=== PATIENT | female | born 1965 | race Caucasian/White ===

== ENCOUNTER 2016-12-01 15:52 | Observation (INO) ==
--- NOTE | 2016-12-01 17:40 | Emergency Department Note ---
Disposition Clinical Impression: Cellulitis Qualifiers: Site of cellulitis: extremity Site of cellulitis of extremity: lower extremity Laterality: right Qualified Code(s): L03.115 - Cellulitis of right lower limb Disposition: Admitted As Inpatient Condition: Good Extremity Problem HPI - General Chief complaint: ED Extremity Problem,Nontraumatic Stated complaint: "i think i have cellulitis" Time Seen by Provider: 12/01/16 16:52 Source: patient Mode of arrival: private vehicle Limitations: physical limitation Nursing Notes Reviewed: Yes Vital Signs Reviewed: Yes - History of Present Illness HPI Narrative: 51-year-old female history of morbid obesity, diabetes, MRSA infections in the past who presents to the ER with a chief complaint of possible cellulitis. Patient states that it was brought to her attention that she had redness to her right leg last night. She states she rebeca a [place] around it. She was told to do that the last time she had cellulitis. She reports chills at home but no fevers. She has also felt nauseated but no vomiting. She came in today because the redness had worsened from where she had drawn a [place]. She reports a history of cellulitis in the past requiring hospitalization and IV antibiotics. She also reports a history of solitary kidney and a prior history of renal failure in the past. No other complaints. She was recently admitted with a UTI on Cipro and has completed that course of antibiotics. Pt Subjective Complaint: other (Cellulitis) Onset (ago): day(s) Consistency: constant Injury Location: right, lower extremity Pain Scale: 7 Quality: aching Radiation: none Improves with: nothing Worsens with: nothing Associated symptoms: Reports: rash, change in appearance, redness. Denies: chest pain, abdominal pain, fever - Related Data Home Medications Medication Instructions Recorded Confirmed Acetaminophen/Butalbital/Caffe 1 tab PO Q4H PRN 02/20/15 11/19/16 [Fioricet] Albuterol Sulfate [Albuterol 2 puff IH BID PRN 02/20/15 11/19/16 Inhaler] Amitriptyline [Elavil] 25 mg PO HS 02/20/15 11/19/16 Clopidogrel [Plavix] 75 mg PO DAILY 02/20/15 11/19/16 Cyanocobalamin (B-12) [Vitamin B12] 1,000 mcg IM QMONTH 02/20/15 11/19/16 Duloxetine HCl [Cymbalta] 60 mg PO DAILY 02/20/15 11/19/16 Gabapentin [Neurontin] 800 mg PO TID 02/20/15 11/19/16 Levothyroxine [Synthroid] 50 mcg PO DAILY 02/20/15 11/19/16 Lisinopril [Zestril] 40 mg PO DAILY 02/20/15 11/19/16 Oxybutynin [Ditropan] 5 mg PO BID 02/20/15 11/19/16 Oxygen 2 l .ROUTE DAILY 02/20/15 11/19/16 Simvastatin [Zocor] 40 mg PO HS 02/20/15 11/19/16 Isosorbide MONOnitrate (24 HR) 30 mg PO DAILY 02/26/16 11/19/16 [Imdur] Norethindrone Acetate 5 mg PO DAILY 02/26/16 11/19/16 Docusate [Colace] 100 mg PO BID 08/08/16 11/19/16 Lidocaine Patch [Lidoderm 5% patch] 1 each TP DAILY 08/08/16 11/19/16 Metoprolol [Lopressor] 25 mg PO BID 08/08/16 11/19/16 Zonisamide [Zonegran] 2 cap PO DAILY 08/08/16 11/19/16 Acetaminophen [Non-Aspirin Extra 500 mg PO QID PRN 09/22/16 11/19/16 Strength] Ranitidine HCl [Zantac] 150 mg PO BID 09/22/16 11/19/16 Tramadol HCl [Ultram] 50 mg PO QID PRN 09/22/16 11/19/16 diazePAM [Valium] 1 tab PO BID PRN 09/22/16 11/19/16 Metformin HCl [Fortamet] 500 mg PO BID 11/19/16 11/19/16 Previous Rx's Medication Instructions Recorded Cholecalciferol (D-3) [Vitamin D] 2,000 unit PO DAILY #60 tablet 12/29/15 HYDROcodone/Acet 5/325 mg [[place] 1 tab PO Q6H PRN #10 tab 09/25/16 5-325 mg] HYDROcodone/Acet 5/325 mg [[place] 1 tab PO Q6H PRN #10 tab 11/19/16 5-325 mg] Nitrofurantoin (BID) [Macrobid] 100 mg PO BID #10 capsule 11/19/16 Ondansetron ODT [Zofran ODT] 4 mg SL Q6HR #10 tab.rapdis 11/19/16 Allergies Allergy/AdvReac Type Severity Reaction Status Date / Time ciprofloxacin Allergy Gastrointestinal Verified 09/25/16 15:07 Upset Penicillins [PCN] AdvReac Intermediate Gastrointestinal Verified 09/25/16 15:07 Upset aspirin [ASA] AdvReac Mild Gastrointestinal Verified 09/25/16 15:07 Upset rice AdvReac Gastrointestinal Verified 09/25/16 15:07 Upset All systems ED: reviewed and negative except as stated. Constitutional: Reports: chills. Denies: fever Cardiovascular: Denies: chest pain Respiratory: Denies: dyspnea Gastrointestinal: Reports: nausea. Denies: abdominal pain, vomiting, diarrhea Integumentary: Reports: lesions Past Medical History - Past Medical History Attestation: Yes The following information was validated with the patient. Source: patient Medical history: Reports: arthritis, asthma, cancer, CVA, diabetes, GERD, hyperlipidemia, hypertension, migraine, myocardial infarction, renal disease, thyroid disease, TIA, other Surgical history: Reports: breast surgery, , cataract, other Psychiatric history: Reports: anxiety, depression WELL TESTER history: Reports: no WELL TESTER history, other - Social History Smoking Status: Former smoker Smokeless Tobacco Status: No Alcohol use: Reports: none Drug use: Reports: none Physical Exam - General Limitations: physical limitation General appearance: alert, in no apparent distress - Head Head exam: atraumatic, normocephalic, normal inspection - Eye Eye exam: Present: normal appearance, EOMI - ENT ENT exam: normal exam - Neck Neck exam: Present: normal inspection - Chest Chest inspection: Present: normal inspection, symmetric chest wall rise - Respiratory Respiratory exam: Present: normal lung sounds bilaterally - Cardiovascular Cardiovascular exam: Present: regular rate, normal rhythm, normal heart sounds - Abdominal Exam Abdominal exam: Present: soft, Non-Tender, other (Multiple poorly healing lesions over the abdomen). Absent: tenderness - Extremities Exam Extremities exam: Present: normal inspection, full ROM - Expanded Upper Extremity Exam Shoulder exam: Present: normal inspection, full ROM Arm exam: Present: normal inspection, full ROM Elbow exam: Present: normal inspection, full ROM Forearm/Wrist exam: Present: normal inspection, full ROM Hand exam: Present: normal inspection, full ROM - Expanded Lower Extremity Exam Hip/Pelvis exam: Present: normal inspection, full ROM Upper leg exam: Present: normal inspection, full ROM Knee exam: Present: normal inspection, full ROM Lower leg exam: Present: normal inspection, full ROM, erythema (There is erythema over the anterior and medial aspects of the lower extremity up into the popliteal fossa) Ankle exam: Present: normal inspection, full ROM Foot/toe exam: Present: normal inspection, full ROM, other (There are ulcerations over the right second toe and the left fifth toe.) - Neurological Exam Neurological exam: Present: alert - Psychiatric Psychiatric exam: Present: normal affect, normal mood - Skin Skin exam: Present: dry, intact, erythema (Erythema to the distal anterior right lower extremity and medial portion tracking up into the popliteal fossa.) Course Course Narrative: Patient seen and examined. Vital signs reviewed. We will get basic labs. She also has a history of MRSA and will require hospital admission for IV antibiotics as the site has changed significantly since yesterday. Vital Signs Temperature 97.8 F 12/01/16 15:53 Pulse Rate 81 12/01/16 15:53 Respiratory Rate 24 12/01/16 15:53 Blood Pressure 106/61 12/01/16 15:53 O2 Sat by Pulse Oximetry 96 12/01/16 15:53 Temperature 97.8 F 12/01/16 15:53 Pulse Rate 81 12/01/16 15:53 Respiratory Rate 18 12/01/16 19:45 Blood Pressure 116/77 12/01/16 19:45 O2 Sat by Pulse Oximetry 96 12/01/16 15:53 Oxygen Delivery Oxygen Delivery Room Air Extremity Problem, Nontraumati - MDM Narrative Medical decision making narrative: 51-year-old female presents to the ER due to right lower from a cellulitis. She has a history of MRSA in the past requiring hospitalization and IV antibiotics. The area has roughly doubled since she marked it yesterday. No fevers at home but chills. Labwork here unremarkable. She does have a history of solitary kidney and renal failure in the past so we talked with pharmacy and gave her doxycycline. Patient admitted to the hospital service. - Lab Data Lab results reviewed: Yes I reviewed the patient's lab results. Result diagrams: 12/01/16 18:13 12/01/16 18:13 Lab Results 12/01/16 12/01/16 Range/Units 18:13 18:13 WBC 7.5 (4.3-11.1) K/mcL RBC 3.97 (3.82-4.97) M/mcL Hgb 11.3 L (11.5-15.4) g/dL Hct 35.6 (35.3-44.9) % MCV 89.7 (83.0-100.0) fL MCH 28.5 (28.0-33.3) pg MCHC 31.7 (31.6-35.5) g/dL RDW 14.4 (11.5-14.5) % Plt Count 233 (140-400) K/mcL MPV 8.7 L (9.4-12.4) fL Immature Gran % 0.1 (0-4) % Seg Neutrophils % 68.4 % Lymphocytes % 22.6 % Monocytes % 7.0 % Eosinophils % 1.5 % Basophils % 0.4 % Neutrophils # 5.1 (1.6-8.9) K/mcL Lymphocytes # 1.7 (0.6-4.6) K/mcL Monocytes # 0.5 (0.0-1.3) K/mcL Eosinophils # 0.1 (0.0-0.6) K/mcL Basophils # 0.0 (0.0-0.2) K/mcL Sodium 141 (136-145) mEq/L Potassium 4.6 H (3.5-4.5) mEq/L Chloride 110 H (98-109) mEq/L Carbon Dioxide 22 (19-29) mEq/L BUN 17 (7-20) mg/dL Creatinine 0.98 (0.57-1.11) mg/dL Est GFR ( Amer) > 60 (> 60) Est GFR (Non-Af Amer) 60 (> 60) BUN/Creatinine Ratio 17 (6-26) Glucose 112 H (70-99) mg/dL Calculated Osmolality 294 (280-300) Calcium 8.9 (8.6-10.8) mg/dL Attestation Statement - Attestation Attestation: I, Saurav Tamayo, examined this patient and my medical decision-making was reviewed with the PROGRAM ENGINEER/PA/Advanced Practice Nurse/Resident Physician. I agree with the documented findings, disposition and treatment plan as described except to the extent set forth below. 51-year-old female presents with concerns of cellulitis. Patient states she had an area of erythema to the right medial calf which she circled with a pen. Today she woke and she had significant pain and increased erythema which extended outside of the line she created. Patient has a history of MRSA. She states she has a history of needing to be admitted to the hospital for treatment of skin infection in the past. Patient has an extensive past medical history with multiple comorbidities. Patient only has one kidney and I am refraining from using vancomycin this patient due to his nephrotoxicity. Patient takes Cymbalta and therefore I cannot use Linezolid. I spoke with the pharmacist who recommended doxycycline IV. Vital signs are stable. She feels comfortable to be admitted to the hospital for further care and evaluation.
[2016-12-01] MEDS ORDERED: Doxycycline 100 MG in 0.9 % Sodium Chloride Mini Bag 100 ML IVPB ONE (18:07)
[2016-12-01 18:29] LABS: Basophils % 0.4 %; Eosinophils # 0.1 K/mcL (0.0-0.6); Eosinophils % 1.5 %; Hematocrit 35.6 % (35.3-44.9); Hemoglobin 11.3 g/dL (11.5-15.4); Immature Granulocytes % 0.1 % (0-4); Lymphocytes # 1.7 K/mcL (0.6-4.6); Lymphocytes % 22.6 %; Mean Corpuscular HGB Conc 31.7 g/dL (31.6-35.5); Mean Corpuscular Hemoglobin 28.5 pg (28.0-33.3); Mean Corpuscular Volume 89.7 fL (83.0-100.0); Mean Platelet Volume 8.7 fL (9.4-12.4); Monocytes # 0.5 K/mcL (0.0-1.3); Neutrophils # 5.1 K/mcL (1.6-8.9); Platelet Count 233 K/mcL (140-400); Red Blood Count 3.97 M/mcL (3.82-4.97); Red Cell Distribution Width 14.4 % (11.5-14.5); Segmented Neutrophils % 68.4 %
[2016-12-01 18:42] LABS: BUN/Creatinine Ratio 17 (6-26); Blood Urea Nitrogen 17 mg/dL (7-20); Calcium 8.9 mg/dL (8.6-10.8); Carbon Dioxide 22 mEq/L (19-29); Chloride 110 mEq/L (98-109); Glucose 112 mg/dL (70-99); Osmolality,Calculated 294 (280-300); Potassium 4.6 mEq/L (3.5-4.5); Sodium 141 mEq/L (136-145); eGFR For African Americans > 60 (> 60); eGFR For Non-African Americans 60 (> 60)
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
[2016-12-01 20:43] LABS: Basophils % 0.2 %; Eosinophils # 0.1 K/mcL (0.0-0.6); Eosinophils % 1.2 %; Hematocrit 35.5 % (35.3-44.9); Hemoglobin 11.1 g/dL (11.5-15.4); Immature Granulocytes % 0.2 % (0-4); Lymphocytes # 1.9 K/mcL (0.6-4.6); Lymphocytes % 23.3 %; Mean Corpuscular HGB Conc 31.3 g/dL (31.6-35.5); Mean Corpuscular Hemoglobin 28.2 pg (28.0-33.3); Mean Corpuscular Volume 90.3 fL (83.0-100.0); Mean Platelet Volume 8.5 fL (9.4-12.4); Monocytes # 0.6 K/mcL (0.0-1.3); Monocytes % 6.9 %; Neutrophils # 5.5 K/mcL (1.6-8.9); Platelet Count 222 K/mcL (140-400); Red Blood Count 3.93 M/mcL (3.82-4.97); Red Cell Distribution Width 14.3 % (11.5-14.5); Segmented Neutrophils % 68.2 %
[2016-12-01 20:56] LABS: BUN/Creatinine Ratio 17 (6-26); Blood Urea Nitrogen 16 mg/dL (7-20); Calcium 8.8 mg/dL (8.6-10.8); Carbon Dioxide 21 mEq/L (19-29); Chloride 110 mEq/L (98-109); Glucose 109 mg/dL (70-99); Magnesium 1.4 mg/dL (1.6-2.6); Osmolality,Calculated 290 (280-300); Potassium 4.5 mEq/L (3.5-4.5); Sodium 139 mEq/L (136-145); eGFR For African Americans > 60 (> 60); eGFR For Non-African Americans > 60 (> 60)
[2016-12-01] MEDS: *HR* Heparin 5,000 UNIT/ML VIAL SQ SCH (21:56)
[2016-12-01] MEDS: 0.9 % Sodium Chloride 1,000 ML IVC SCH (21:56)
[2016-12-01] MEDS: Insulin LISPRO 300 UNITS/3 ML VIAL SQ SCH (21:57)
[2016-12-02 00:41] LABS: Hemoglobin A1C 6.2 %
[2016-12-02] MEDS: *HR* HYDROcodone/Acet 5/325 mg TABLET PO PRN ×3 (00:52→20:24)
[2016-12-02] MEDS: Clindamycin 600 MG/50 ML 600 MG/50 ML IV.SOLN IVPB SCH ×2 (00:53→09:41)
[2016-12-02] MEDS: *HR* Heparin 5,000 UNIT/ML VIAL SQ SCH ×3 (05:38→22:24)
[2016-12-02] MEDS ORDERED: Magnesium Sulfate 2 GM in D5% in Water 100 ML IVPB ONE (07:33)
[2016-12-02] MEDS: Insulin LISPRO 300 UNITS/3 ML VIAL SQ SCH ×4 (08:01→21:52)
[2016-12-02] MEDS ORDERED: Famotidine 20 MG/2 ML VIAL IVP SCH (09:00)
[2016-12-02] MEDS ORDERED: NON-FORMULARY MEDICATION 1 EACH EACH (Oxygen [Oxygen] 2 L) SCH (09:00)
[2016-12-02] MEDS ORDERED: Isosorbide MONOnitrate (24 HR) 30 MG TAB.ER.24H PO SCH (09:00)
[2016-12-02] MEDS: Lisinopril 20 MG TABLET PO SCH (09:44)
[2016-12-02] MEDS: Cholecalciferol (D-3) 1,000 UNIT TABLET PO SCH (09:44)
[2016-12-02] MEDS: 0.9 % Sodium Chloride 1,000 ML IVC SCH ×2 (09:56→23:51)
[2016-12-02] MEDS ORDERED: Vancomycin 1,250 MG in D5% in Water 250 ML IVPB SCH (11:00)
[2016-12-02] MEDS ORDERED: Vancomycin 1,500 MG in D5% in Water 250 ML IVPB ONE (11:21)
[2016-12-02] MEDS ORDERED: D5% in Water 1,000 ML IVC PRN (11:54)
[2016-12-02] MEDS ORDERED: Dextrose Gel 15 GM PO PRN ×2 (11:54)
[2016-12-02] MEDS ORDERED: *HR* Dextrose 50 % in Water (Syg) 50 ML SYRINGE IVP PRN (11:54)
[2016-12-02 12:42] LABS: BUN/Creatinine Ratio 14 (6-26); Blood Urea Nitrogen 13 mg/dL (7-20); eGFR For African Americans > 60 (> 60); eGFR For Non-African Americans > 60 (> 60)
[2016-12-02] MEDS: Gabapentin 400 MG CAPSULE PO SCH ×2 (14:33→20:18)
[2016-12-02] MEDS: Vancomycin 1,500 MG in D5% in Water 250 ML IVPB SCH (14:43)
--- NOTE | 2016-12-02 16:07 | Internal Med Progress Note ---
Date of Encounter: 12/02/16 Time of Encounter: 08:55 - Assessment and plan (1) Cellulitis Current Visit: Yes Status: Acute Assessment and plan: Acute cellulitis of right lower extremity - possibly due to minor injury - ulcers of right second toe plantar aspect and ulcer of left fifth toe plantar aspect Continue IV fluids, empiric IV Zosyn, IV Vancomycin, [place] as needed for pain Blood cultures and urine cultures - pending Ultrasound Dopplers bilateral - pending Podiatry consult - pending Cardiac telemetry, labs in a.m., continue home meds, wound care, dressing change Qualifiers: Site of cellulitis: extremity Site of cellulitis of extremity: lower extremity Laterality: right Qualified Code(s): L03.115 - Cellulitis of right lower limb (2) DM type 2 (diabetes mellitus, type 2) Current Visit: No Status: Chronic Assessment and plan: Diabetes mellitus type 2, [id number], hyperglycemia Continue insulin sliding scale, glucose checks Qualifiers: Diabetes mellitus complication status: with unspecified complications Diabetes mellitus termite inspector insulin use: without termite inspector use Qualified Code( s): E11.8 - Type 2 diabetes mellitus with unspecified complications (3) PETROS (obstructive sleep apnea) Current Visit: No Status: Chronic Assessment and plan: Obstructive sleep apnea and obesity hypoventilation - continue CPAP (4) COPD (chronic obstructive pulmonary disease) Current Visit: No Status: Chronic Assessment and plan: Stable, not in exacerbation Continue DuoNeb breathing treatment Qualifiers: COPD type: unspecified COPD Qualified Code(s): J44.9 - Chronic obstructive pulmonary disease, unspecified (5) Coronary artery disease Current Visit: No Status: Chronic Assessment and plan: Stable - No anginal symptoms Continue Plavix, statin Qualifiers: Coronary Disease-Associated Artery/Lesion type: [place] artery [place] vs. transplanted heart: [place] heart Associated angina: with unspecified angina Qualified Code(s): I25.119 - Atherosclerotic heart disease of [place] coronary artery with unspecified angina pectoris (6) Morbid obesity with BMI of 70 and over, adult Current Visit: No Status: Chronic Assessment and plan: BMI 70.0, needs PT (7) Single kidney Current Visit: Yes Status: Chronic Assessment and plan: History of congenital atrophic left kidney. Creatinine and GFR at baseline. Avoid nephrotoxins (8) DVT prophylaxis Current Visit: Yes Status: Acute Assessment and plan: Continue heparin subcutaneous - Time Spent With Patient 25 - 35 minutes - Subjective Interval history: Examined this morning. Patient is awake and alert. Not in any distress. Denies chest pain or shortness of breath. Denies abdominal pain or vomiting or diarrhea. No fever. Patient is morbidly obese. Hemodynamically stable. Admitted for left lower leg cellulitis. Podiatry consult pending. Ultrasound Doppler of lower extremities pending. No other acute events or complaints. - Constitutional Vitals: Temp Pulse Resp BP Pulse Ox 97.9 F 76 18 145/90 94 12/02/16 15:30 12/02/16 15:30 12/02/16 15:30 12/02/16 15:30 12/02/16 15:30 General appearance: Present: A&O X 3, morbidly obese, pleasant, no acute distress, answers questions appropriately - Head Head exam: Present: atraumatic - Eye Eye exam: Present: EOMI - ENT ENT exam: Present: mucous membranes moist - Neck Neck exam general surgery: Present: supple - Respiratory Respiratory exam: Present: CTAB. Absent: rales, rhonchi, wheezes, tachypnea - Cardiovascular Cardiovascular exam: Present: RRR, +S1, +S2 - GI/Abdominal GI/Abdominal exam: Present: distended (Obese), soft. Absent: firm, guarding, tenderness - Extremities Exam Extremities exam: Present: calf tenderness (Over right side), pedal edema ( Bilateral leg edema 2+ on the left side and 3+ on right side), radial pulses palpable and symetrical. Absent: cyanotic Additional comments: Erythema and severe swelling over right lower leg and calf, no calf tenderness, ulcer over the right second toe plantar aspect and ulcer over left fifth toe plantar aspect - Neurological Exam Neurological exam: Present: alert, oriented X3, no focal deficits. Absent: facial droop, speech deficit Internal Medicine: Result - Labs CBC & Chem 7: 12/01/16 20:37 12/02/16 12:06 Labs: Short CBC 12/01/16 Range/Units 20:37 WBC 8.1 (4.3-11.1) K/mcL Hgb 11.1 L (11.5-15.4) g/dL Hct 35.5 (35.3-44.9) % Plt Count 222 (140-400) K/mcL Neutrophils # 5.5 (1.6-8.9) K/mcL BMP 12/01/16 12/02/16 20:37 12:06 Sodium 139 Potassium 4.5 Chloride 110 H Carbon Dioxide 21 BUN 16 13 Creatinine 0.92 0.95 Glucose 109 H Calcium 8.8 Consult Discharge Plan - Plan Referrals: Jamie Garibay MD [Primary Care Provider] -
[2016-12-02] MEDS: Piperacillin/Tazobactam 3.375 GM in D5% in Water (Mini-Bag+) 100 ML IVPB SCH ×2 (16:18→23:51)
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
[2016-12-02] MEDS ORDERED: Ondansetron 4 MG/2 ML VIAL IVP PRN (22:19)
[2016-12-02] MEDS ORDERED: *HR* Morphine 2 MG/ML SYRINGE IVP PRN (22:20)
[2016-12-03 04:45] LABS: Basophils % 0.7 %; Eosinophils # 0.1 K/mcL (0.0-0.6); Eosinophils % 2.3 %; Hemoglobin 10.5 g/dL (11.5-15.4); Immature Granulocytes % 0.7 % (0-4); Lymphocytes # 1.3 K/mcL (0.6-4.6); Lymphocytes % 29.1 %; Mean Corpuscular HGB Conc 30.9 g/dL (31.6-35.5); Mean Corpuscular Hemoglobin 28.1 pg (28.0-33.3); Mean Corpuscular Volume 90.9 fL (83.0-100.0); Mean Platelet Volume 9.1 fL (9.4-12.4); Monocytes # 0.3 K/mcL (0.0-1.3); Monocytes % 6.9 %; Neutrophils # 2.6 K/mcL (1.6-8.9); Platelet Count 216 K/mcL (140-400); Red Blood Count 3.74 M/mcL (3.82-4.97); Red Cell Distribution Width 14.7 % (11.5-14.5); Segmented Neutrophils % 60.3 %
[2016-12-03 05:03] LABS: BUN/Creatinine Ratio 13 (6-26); Blood Urea Nitrogen 13 mg/dL (7-20); Calcium 9.2 mg/dL (8.6-10.8); Carbon Dioxide 22 mEq/L (19-29); Chloride 110 mEq/L (98-109); Glucose 119 mg/dL (70-99); Osmolality,Calculated 291 (280-300); Potassium 4.4 mEq/L (3.5-4.5); Sodium 140 mEq/L (136-145); eGFR For African Americans > 60 (> 60); eGFR For Non-African Americans 57 (> 60)
[2016-12-03] MEDS: *HR* Heparin 5,000 UNIT/ML VIAL SQ SCH ×3 (06:05→21:40)
[2016-12-03] MEDS: Vancomycin 1,500 MG in D5% in Water 250 ML IVPB SCH ×4 (06:05→13:56)
[2016-12-03] MEDS: Insulin LISPRO 300 UNITS/3 ML VIAL SQ SCH ×4 (08:55→21:40)
[2016-12-03] MEDS: Piperacillin/Tazobactam 3.375 GM in D5% in Water (Mini-Bag+) 100 ML IVPB SCH ×2 (10:40→15:46)
[2016-12-03] MEDS: Cholecalciferol (D-3) 1,000 UNIT TABLET PO SCH (10:43)
[2016-12-03] MEDS: Famotidine 20 MG TABLET PO SCH (10:43)
[2016-12-03] MEDS: Gabapentin 400 MG CAPSULE PO SCH ×3 (10:44→21:40)
[2016-12-03] MEDS: Isosorbide MONOnitrate (24 HR) 60 MG TAB.ER.24H PO SCH (10:44)
[2016-12-03] MEDS: Lisinopril 20 MG TABLET PO SCH (10:44)
[2016-12-03] MEDS ORDERED: *HR* HYDROcodone/Acet 5/325 mg TABLET PO PRN (11:31)
[2016-12-03] MEDS ORDERED: *HR* Morphine 2 MG/ML SYRINGE IVP PRN (11:31)
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
[2016-12-03] MEDS: 0.9 % Sodium Chloride 1,000 ML IVC SCH ×3 (13:31→21:46)
--- NOTE | 2016-12-03 14:10 | Internal Med Progress Note ---
Date of Encounter: 12/03/16 Time of Encounter: 09:25 - Assessment and plan (1) Cellulitis Current Visit: Yes Status: Acute Assessment and plan: Acute cellulitis involving the right lower extremity over the thigh and calf. Improving. Erythema has significantly improved compared to markings placed on initial admission. Site of cellulitis remains tender to palpation. We will continue IV antibiotics. Moderate risk for complications. Qualifiers: Site of cellulitis: extremity Site of cellulitis of extremity: lower extremity Laterality: right Qualified Code(s): L03.115 - Cellulitis of right lower limb (2) COPD (chronic obstructive pulmonary disease) Current Visit: Yes Status: Chronic Assessment and plan: Continue bronchodilators. Patient reported that she had pleuritic chest pain last night with some difficulty breathing. This has since subsided. Troponins were negative. Qualifiers: COPD type: unspecified COPD Qualified Code(s): J44.9 - Chronic obstructive pulmonary disease, unspecified (3) DM type 2 (diabetes mellitus, type 2) Current Visit: Yes Status: Chronic Assessment and plan: Controlled. Continue current insulin regimen. Qualifiers: Diabetes mellitus complication status: with unspecified complications Diabetes mellitus vermin exterminator insulin use: without vermin exterminator use Qualified Code( s): E11.8 - Type 2 diabetes mellitus with unspecified complications (4) Morbid obesity with BMI of 70 and over, adult Current Visit: No Status: Chronic (5) PETROS (obstructive sleep apnea) Current Visit: No Status: Chronic Assessment and plan: CPAP use when sleeping or lying down (6) Single kidney Current Visit: Yes Status: Chronic Assessment and plan: Renal function remains stable. We will monitor closely and adjust antibiotic dosage renally. (7) Toe ulcer Current Visit: No Status: Acute Assessment and plan: Podiatry following patient. Bedside debridement done. Patient has ulcers on both feet which are chronic. Qualifiers: Laterality: right Non-pressure ulcer stage: limited to breakdown of skin Qualified Code(s): L97.511 - Non-pressure chronic ulcer of other part of right foot limited to breakdown of skin (8) Coronary artery disease Current Visit: No Status: Chronic Assessment and plan: Patient reported pleuritic chest pain that has since subsided. Troponin was negative. Continue Plavix, beta alea and statin. Qualifiers: Coronary Disease-Associated Artery/Lesion type: [place] artery [place] vs. transplanted heart: [place] heart Associated angina: with unspecified angina Qualified Code(s): I25.119 - Atherosclerotic heart disease of [place] coronary artery with unspecified angina pectoris (9) DVT prophylaxis Current Visit: Yes Status: Acute Assessment and plan: With heparin subcutaneous - Subjective Interval history: Patient complains of continued pain in both lower extremities although redness and swelling has improved. Denies any fever or chills overnight. Tolerating diet well. Requiring intravenous narcotic medications to control pain. - Constitutional Vitals: Temp Pulse Resp BP Pulse Ox 97.4 F L 86 18 153/93 97 12/03/16 11:10 12/03/16 11:10 12/03/16 11:10 12/03/16 11:10 12/03/16 11:10 General appearance: Present: mild distress, A&O X 3, morbidly obese, pleasant, answers questions appropriately - Neck Neck exam general surgery: Present: supple, trachea midline. Absent: lymphadenopathy - Respiratory Respiratory exam: Present: CTAB. Absent: accessory muscle use, rales, rhonchi, wheezes - Cardiovascular Cardiovascular exam: Present: RRR, +S1, +S2. Absent: diastolic murmur, gallop, rubs, systolic murmur - GI/Abdominal GI/Abdominal exam: Present: normal bowel sounds, soft, no peritoneal signs. Absent: distended, tenderness - Extremities Exam Extremities exam: Present: pedal edema, warm, radial pulses palpable and symetrical. Absent: calf tenderness, cyanotic Additional comments: Erythema and swelling in the right thigh is improving. There is tenderness over the right calf and right thigh. Right foot currently bandaged - Neurological Exam Neurological exam: Present: alert, oriented X3, no focal deficits. Absent: facial droop, speech deficit Internal Medicine: Result - Labs CBC & Chem 7: 12/03/16 03:33 12/03/16 03:33 Labs: Short CBC 12/03/16 Range/Units 03:33 WBC 4.4 (4.3-11.1) K/mcL Hgb 10.5 L (11.5-15.4) g/dL Hct 34.0 L (35.3-44.9) % Plt Count 216 (140-400) K/mcL Neutrophils # 2.6 (1.6-8.9) K/mcL BMP 12/03/16 03:33 Sodium 140 Potassium 4.4 Chloride 110 H Carbon Dioxide 22 BUN 13 Creatinine 1.03 Glucose 119 H Calcium 9.2 Cardiac Enzymes 12/03/16 Range/Units 12:40 Troponin I 0.00 (0-0.03) ng/mL - Impressions Impressions Foot X-Ray 12/02/16 17:58 IMPRESSION: No plain film evidence of osteomyelitis. Re- demonstration of linear metallic foreign body adjacent to the midshaft of the 3rd metatarsal. D/ / Humberto Carmona MD / Humberto Carmona MD Interpreting Provider: Humberto Carmona MD Foot X-Ray 12/02/16 17:58 IMPRESSION: 1. Nonspecific edema. 2. No acute osseous abnormality or findings concerning for osteomyelitis. D/ / 12/02/2016 18:29:17 James Connolly MD / Mirian Cody Interpreting Provider: James Connolly MD Consult Discharge Plan - Plan Referrals: Jamie Garibay MD [Primary Care Provider] -
[2016-12-03] MEDS ORDERED: Vancomycin 1,500 MG in D5% in Water 250 ML IVPB SCH (18:00)
[2016-12-03] MEDS ORDERED: Vancomycin 1,250 MG in D5% in Water 250 ML IVPB SCH (19:00)
[2016-12-03] MEDS: Ipratropium/Albuterol Neb 3 ML IH SCH ×2 (20:20→21:00)
--- NOTE | 2016-12-03 21:43 | Venous Imaging Report ---
LE Venous Duplex Patient Name:Susan Patterson Order Number:[id number] Procedure Date:12/02/2016 Date:1965Age:51 yrs Gender:Female Location:[facility] Room #: 3A24 Outreach And Education Social Worker:Sarah Ribeiro RDCS Referring MD:Todd Paulino MD insurance collector:Jamie Garibay MD Reading MD:Christo Pierre MD , FACS Primary Indications:edema, cellulitis Secondary Indications: Impressions: Bilateral lower extremity: normal superficial and deep exam. Recommendations: Preliminary given to pt RNFauzia. Findings Venous Duplex Results: Right: Venous imaging of the lower extremity reveals full patency and normal vessel compressibility of the right distal iliac, right common femoral, right superficial femoral, right popliteal, right posterior tibial, right peroneal, right great saphenous and right lesser saphenous. Doppler signals in the evaluated veins were normal. Left: Venous imaging of the lower extremity reveals full patency and normal vessel compressibility of the left distal iliac, left common femoral, left superficial femoral, left popliteal, left posterior tibial, left peroneal, left great saphenous and left lesser saphenous. Doppler signals in the evaluated veins were normal. Lower Extremity Venous Duplex Side Vein Compress Spontaneous Flow Augment Diameter (cm) Depth (cm) Left Great Saphenous Normal Yes Phasic Yes Left Lesser Saphenous Normal Yes Phasic Yes Right Distal Iliac Normal Yes Phasic Yes Right Common Femoral Normal Yes Phasic Yes Right Superficial Femoral Normal Yes Phasic Yes Right Popliteal Normal Yes Phasic Yes Right Posterior Tibial Normal Yes Phasic Yes Right Peroneal Normal Yes Phasic Yes Right Great Saphenous Normal Yes Phasic Yes Right Lesser Saphenous Normal Yes Phasic Yes Left Distal Iliac Normal Yes Phasic Yes Left Common Femoral Normal Yes Phasic Yes Left Superficial Femoral Normal Yes Phasic Yes Left Popliteal Normal Yes Phasic Yes Left Posterior Tibial Normal Yes Phasic Yes Left Peroneal Normal Yes Phasic Yes Updated by Christo Pierre MD, FACS on 12/03/2016 9:36:09 PM Christo Pierre MD electronically signed on 12/03/2016 9:36:29 PM with status of Final
[2016-12-04] MEDS: Piperacillin/Tazobactam 3.375 GM in D5% in Water (Mini-Bag+) 100 ML IVPB SCH ×2 (00:40→09:09)
[2016-12-04] MEDS: 0.9 % Sodium Chloride 1,000 ML IVC SCH (00:41)
[2016-12-04] MEDS: Ipratropium/Albuterol Neb 3 ML IH SCH ×2 (04:18→10:35)
[2016-12-04] MEDS: *HR* Heparin 5,000 UNIT/ML VIAL SQ SCH (06:23)
[2016-12-04 06:42] LABS: Basophils % 0.5 %; Eosinophils # 0.2 K/mcL (0.0-0.6); Hematocrit 35.4 % (35.3-44.9); Immature Granulocytes % 0.2 % (0-4); Lymphocytes # 1.6 K/mcL (0.6-4.6); Lymphocytes % 37.8 %; Mean Corpuscular HGB Conc 31.1 g/dL (31.6-35.5); Mean Corpuscular Hemoglobin 28.2 pg (28.0-33.3); Mean Corpuscular Volume 90.8 fL (83.0-100.0); Mean Platelet Volume 9.1 fL (9.4-12.4); Monocytes # 0.3 K/mcL (0.0-1.3); Monocytes % 7.8 %; Neutrophils # 2.1 K/mcL (1.6-8.9); Platelet Count 208 K/mcL (140-400); Red Cell Distribution Width 14.8 % (11.5-14.5); Segmented Neutrophils % 49.7 %
[2016-12-04 07:40] LABS: BUN/Creatinine Ratio 17 (6-26); Blood Urea Nitrogen 15 mg/dL (7-20); Calcium 9.3 mg/dL (8.6-10.8); Carbon Dioxide 19 mEq/L (19-29); Chloride 111 mEq/L (98-109); Glucose 101 mg/dL (70-99); Osmolality,Calculated 289 (280-300); Potassium 4.8 mEq/L (3.5-4.5); Sodium 139 mEq/L (136-145); eGFR For African Americans > 60 (> 60); eGFR For Non-African Americans > 60 (> 60)
[2016-12-04] MEDS ORDERED: Vancomycin 1,250 MG in D5% in Water 250 ML IVPB ONE (09:00)
[2016-12-04] MEDS: Gabapentin 400 MG CAPSULE PO SCH (09:10)
[2016-12-04] MEDS: Lisinopril 20 MG TABLET PO SCH (09:10)
[2016-12-04] MEDS: Famotidine 20 MG TABLET PO SCH (09:11)
[2016-12-04] MEDS: Cholecalciferol (D-3) 1,000 UNIT TABLET PO SCH (09:11)
[2016-12-04] MEDS: Isosorbide MONOnitrate (24 HR) 60 MG TAB.ER.24H PO SCH (09:11)
[2016-12-04] MEDS: Insulin LISPRO 300 UNITS/3 ML VIAL SQ SCH ×2 (09:18→12:04)
[2016-12-04] MEDS ORDERED: Ipratropium/Albuterol Neb 3 ML IH PRN (11:43)
[2016-12-04 12:04] VITALS: BP 131/72
--- NOTE | 2016-12-04 13:18 | Discharge Summary ---
Date of Encounter: 12/04/16 Time of Encounter: 13:13 - Discharge Diagnosis (1) Cellulitis Priority: Primary Status: Acute Qualifiers: Site of cellulitis: extremity Site of cellulitis of extremity: lower extremity Laterality: right Qualified Code(s): L03.115 - Cellulitis of right lower limb (2) COPD (chronic obstructive pulmonary disease) Priority: Secondary Status: Chronic Comments: With chronic respiratory failure on home oxygen Qualifiers: COPD type: unspecified COPD Qualified Code(s): J44.9 - Chronic obstructive pulmonary disease, unspecified (3) DM type 2 (diabetes mellitus, type 2) Priority: Secondary Status: Chronic Qualifiers: Diabetes mellitus complication status: with unspecified complications Diabetes mellitus long term care administrator insulin use: without long term care administrator use Qualified Code( s): E11.8 - Type 2 diabetes mellitus with unspecified complications (4) Morbid obesity with BMI of 70 and over, adult Priority: Secondary Status: Chronic (5) PETROS (obstructive sleep apnea) Priority: Secondary Status: Chronic (6) Single kidney Priority: Secondary Status: Chronic (7) Toe ulcer Priority: Secondary Status: Acute Qualifiers: Laterality: right Non-pressure ulcer stage: limited to breakdown of skin Qualified Code(s): L97.511 - Non-pressure chronic ulcer of other part of right foot limited to breakdown of skin (8) Coronary artery disease Priority: Secondary Status: Chronic Qualifiers: Coronary Disease-Associated Artery/Lesion type: [place] artery [place] vs. transplanted heart: [place] heart Associated angina: with unspecified angina Qualified Code(s): I25.119 - Atherosclerotic heart disease of [place] coronary artery with unspecified angina pectoris (9) DVT prophylaxis Priority: Secondary Status: Acute - Discharge Medications Prescriptions: Clindamycin HCl 450 mg PO QID #120 capsule Lactobacillus Acidophilus [Digestive Probiotic] 1 each PO TID #30 capsule Home Medications: Acetaminophen/Butalbital/Caffe [Fioricet] 1 tab PO Q4H PRN 02/20/15 [History] Albuterol Sulfate [Albuterol Inhaler] 2 puff IH BID PRN 02/20/15 [History] Amitriptyline [Elavil] 25 mg PO HS 02/20/15 [History] Clopidogrel [Plavix] 75 mg PO DAILY 02/20/15 [History] Cyanocobalamin (B-12) [Vitamin B12] 1,000 mcg IM QMONTH 02/20/15 [History] Duloxetine HCl [Cymbalta] 60 mg PO DAILY 02/20/15 [History] Gabapentin [Neurontin] 800 mg PO TID 02/20/15 [History] Levothyroxine [Synthroid] 50 mcg PO DAILY 02/20/15 [History] Lisinopril [Zestril] 40 mg PO DAILY 02/20/15 [History] Oxybutynin [Ditropan] 5 mg PO BID 02/20/15 [History] Oxygen 2 l .ROUTE DAILY 02/20/15 [History] Simvastatin [Zocor] 40 mg PO HS 02/20/15 [History] Cholecalciferol (D-3) [Vitamin D] 2,000 unit PO DAILY #60 tablet 12/29/15 [Rx] Isosorbide MONOnitrate (24 HR) [Imdur] 60 mg PO DAILY 02/26/16 [History] Norethindrone Acetate 5 mg PO DAILY 02/26/16 [History] Docusate [Colace] 100 mg PO BID 08/08/16 [History] Lidocaine Patch [Lidoderm 5% patch] 1 patch TP DAILY 08/08/16 [History] Metoprolol [Lopressor] 25 mg PO BID 08/08/16 [History] Zonisamide [Zonegran] 200 mg PO DAILY 08/08/16 [History] Acetaminophen [Non-Aspirin Extra Strength] 500 mg PO QID PRN 09/22/16 [History] Ranitidine HCl [Zantac] 150 mg PO BID 09/22/16 [History] Tramadol HCl [Ultram] 50 mg PO QID PRN 09/22/16 [History] diazePAM [Valium] 1 tab PO BID PRN 09/22/16 [History] HYDROcodone/Acet 5/325 mg [[place] 5-325 mg] 1 tab PO Q6H PRN #10 tab 11/19/16 [Rx ] Metformin HCl [Fortamet] 500 mg PO BID 11/19/16 [History] Ondansetron ODT [Zofran ODT] 4 mg SL Q6HR #10 tab.rapdis 11/19/16 [Rx] Clindamycin HCl 450 mg PO QID #120 capsule 12/04/16 [Rx] Lactobacillus Acidophilus [Digestive Probiotic] 1 each PO TID #30 capsule [Rx] Allergies/Adverse Reactions: Allergies ciprofloxacin Allergy (Verified 09/25/16 15:07) Gastrointestinal Upset Penicillins [PCN] Adverse Reaction (Intermediate, Verified 09/25/16 15:07) Gastrointestinal Upset aspirin [ASA] Adverse Reaction (Mild, Verified 09/25/16 15:07) Gastrointestinal Upset rice Adverse Reaction (Verified 09/25/16 15:07) Gastrointestinal Upset Procedures/tests Complete & Pending: Procedures Performed prior 72 hours Category Date Time Status Venous Doppler [EV venous imaging LE BI] Stat Y 12/02/16 10:04 Completed Date of admission: 12/01/16 18:44 Primary care physician: Jamie Garibay MD Consults: 12/01/16 20:13 Consult to Occupational Therapy [CONS] Routine Comment: Evaluate, develop and implement POC Reason for Consult: weakness Consult to Physical Therapy [CONS] Routine Comment: Evaluate, develop and implement POC Reason for Consult: weakness 12/01/16 23:00 Consult to Nutrition [CONS] Routine Comment: Consulting Provider: NUTRITION Reason for Dietary Consult: MST Score 12/02/16 10:04 Consult to Podiatry [CONS] Routine Consulting Provider: Podiatry [facility] Reason for Consult: RIGHT LEG cellulitis, ulcers over right and left toes Call Completed: No Discharging clinician: Hazel Hanson Anticipated date of discharge: 12/04/16 - Patient Status Disposition: Home, Self-Care Condition: Good Functional capacity at discharge: uses cane/walker Overall status at discharge: patient is progressing back to baseline - Discharge Instructions Instructions: Chest Pain (DC), Asthma (DC), Acute Kidney Injury (DC), Cellulitis (DC), Hypothyroidism (DC), Diabetes Mellitus Type 2 in Adults (DC), Chronic Obstructive Pulmonary Disease (DC), Anemia (GEN) Follow Up With: Peyton Tafoya CNP [Advanced Practice Nurse] - 12/12/16 11:00 am Saurav Yancey DPM [Partnered Physician] - (in 1 week) - Diet and Activity Activity: increase activity as tolerated Diet: diabetic diet, low salt diet Hospital course: Ms. Patterson is a 51 year old female patient with history of type 2 diabetes mellitus, obesity, hypertension, hyperlipidemia was admitted here for cellulitis involving mainly the right lower extremity. She was started on treatment for this with IV antibiotics. Patient also has chronic diabetic foot ulcers in both her feet. Podiatry was consulted to help manage these ulcers. Patient underwent bedside debridement for these ulcers. With intravenous antibiotics her erythema has mostly subsided. She continues to have painful spots over her medial thigh and posterior calf in her right lower extremity but the pain is improving. She is clinically stable for discharge and will follow up with podiatry and wound clinic as scheduled outpatient. She will complete oral antibiotic therapy with clindamycin. - Time Spent with Patient Total time spent providing and/or coordinating discharge services: Greater than 30 minutes (40 min) - Constitutional Vitals: Temp Pulse Resp BP Pulse Ox 97.9 F 92 22 131/72 95 12/04/16 11:57 12/04/16 11:57 12/04/16 11:57 12/04/16 11:57 12/04/16 11:57 General appearance: Present: A&O X 3, morbidly obese, pleasant, answers questions appropriately - Neck Neck exam general surgery: Present: supple, trachea midline. Absent: lymphadenopathy - Respiratory Respiratory exam: Present: CTAB. Absent: accessory muscle use, rales, rhonchi, wheezes - Cardiovascular Cardiovascular exam: Present: RRR, +S1, +S2. Absent: diastolic murmur, gallop, rubs, systolic murmur - GI/Abdominal GI/Abdominal exam: Present: normal bowel sounds, soft, no peritoneal signs. Absent: distended, tenderness - Extremities Exam Extremities exam: Present: warm, radial pulses palpable and symmetrical. Absent : calf tenderness, cyanotic, pedal edema Additional comments: erythema subsiding in the right lower extremity but tenderness present over the calf and inner thigh. - Neurological Exam Neurological exam: Present: alert, oriented X3, no focal deficits. Absent: facial droop, speech deficit - Skin Skin exam: Present: dry, intact
[2016-12-04] MEDS ORDERED: Aminoglycoside Consult 1 EACH MC ONE (17:05)
== END 2016-12-04 17:06 | disposition home health service (06) ==
LOC: 3ANU 15:52 → EMEROO 15:52 → 3ANU 19:52 → SUATTDRO 20:20
PROVIDERS: ADMIT Internal Medicine; ATTEND Internal Medicine

== ENCOUNTER 2018-07-24 19:54 | Observation (INO) ==
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
[2018-07-25] MEDS ORDERED: Ipratropium/Albuterol Neb 3 ML IH PRN (00:19)
[2018-07-25] MEDS ORDERED: *HR* Dextrose 50 % in Water (Syg) 50 ML SYRINGE IVP PRN (00:27)
[2018-07-25] MEDS ORDERED: Dextrose Gel 15 GM/37.5 ML TUBE PO PRN ×2 (00:27)
[2018-07-25] MEDS: Ringers Solution, Lactated 1,000 ML IVC SCH ×4 (02:31→21:44)
[2018-07-25] MEDS: traMADol 50 MG TABLET PO PRN (06:14)
[2018-07-25] MEDS: *HR* Heparin 5,000 UNIT/ML VIAL SQ SCH ×3 (06:15→21:44)
[2018-07-25] MEDS: Ondansetron ODT 4 MG TAB.RAPDIS SL SCH ×3 (06:15→18:08)
[2018-07-25] MEDS: Insulin LISPRO 300 UNITS/3 ML VIAL SQ SCH ×4 (07:28→21:47)
--- NOTE | 2018-07-25 07:46 | Internal Med Progress Note ---
Hospitalist Progress Note - Encounter Date of Encounter: 07/25/18 Time of Encounter: 07:42 - Subjective Interval History: I have seen and evaluated the patient and bedside. Patient reports chronic back pain, denies shortness of breath or abdominal pain. - Exam Vitals: Temp Pulse Resp BP Pulse Ox 97.8 F 76 18 97/60 93 07/25/18 06:55 07/25/18 06:55 07/25/18 06:55 07/25/18 06:55 07/25/18 06:55 Exam: Vitals: Reviewed. General: Morbidly obese, Alert and oriented x4. In mild distress due to back pain Cardiovascular:RRR, normal S1 & S2, no rubs, gallops. III/ narvaez-systolic murmur. Lungs: CTA b/l, no wheezes or crackles. Abdomen:Obese, Soft, non-tender, no rigidity. Extremities: No deformity, no edema or tenderness. Neurological: Normal cognition and motor skills. Rest of the physical exam is non contributory - Assessment and Plan (1) Acute renal failure Current Visit: Yes Status: Acute Assessment and Plan: nephrology has been consulted. continue IV hydration but decrease rate to 100 ml/hr. On LR. avoid nephrotoxic medications. retro-peritoneal us urine electrolytes uric acid and cpk (2) PETROS (obstructive sleep apnea) Current Visit: Yes Status: Chronic Assessment and Plan: nocturnal BiPaP (3) Atrophy of left kidney Current Visit: Yes Status: Chronic Assessment and Plan: plan of care as per problem #1. (4) DM type 2 (diabetes mellitus, type 2) Current Visit: Yes Status: Chronic Assessment and Plan: will repeat A1C last A1c about 2 years ago of 6.0. continue insulin lispro low dose sliding scale ac. (5) Coronary artery disease Current Visit: Yes Status: Chronic Assessment and Plan: patient on clopidogrel 75mg/Po Daily. (6) Chronic pain associated with significant psychosocial dysfunction Current Visit: Yes Status: Chronic Assessment and Plan: Patient reporting chronic back pain. Continue tramadol 50 mg every 6 hours by mouth (7) Morbid obesity with BMI of 70 and over, adult Current Visit: Yes Status: Chronic (8) Dehydration Current Visit: Yes Status: Acute Assessment and Plan: patient on IV hydration. encourage PO intake. (9) Hypotension Current Visit: Yes Status: Chronic Assessment and Plan: will discontinue home anti-hypertensive medications. continue IV fluid on LR @ 100 ml/hr. blood culture ordered. (10) Hyperlipidemia Current Visit: No Status: Chronic Assessment and Plan: On a statin (11) COPD (chronic obstructive pulmonary disease) Current Visit: No Status: Chronic Assessment and Plan: not on acute exacerbation. continue bronchodilators PRN. incentive spirometry (12) Depression with anxiety Current Visit: No Status: Chronic Assessment and Plan: patient on duloxetine. (13) Hypothyroid Current Visit: No Status: Chronic (14) UTI (urinary tract infection) Current Visit: Yes Status: Acute Assessment and Plan: Patient allergic to penicillin and ciprofloxacin. Started on nitrofurantoin. We will repeat UA with reflex to culture. DVT Prophylaxis: On heparin subq - Summary of Assessment and Plan Summary of Assessment and Plan: Patient to remain in the hospital due to ALIRIO. - Time Spent with Patient Total time spent is greater than 50% in coordination of care (as documented) at patient's floor/unit and/or counseling patient: Greater than 35 minutes (40) Plan of Care Discussed with: patient (and the nurse.) Internal Medicine: Result - Impressions Impressions Abdomen/Pelvis CT 07/25/18 00:37 IMPRESSION: Ground-glass opacities in the lung bases, suggests mild pulmonary edema. No acute findings in the abdomen or pelvis. D/ / Kiet Castellanos MD / Kiet Castellanos MD Interpreting Provider: Kiet Castellanos MD Consult Discharge Plan - Plan Referrals: NONE,PCP [Primary Care Provider] - (1) Acute renal failure Qualifiers: Acute renal failure type: unspecified Qualified Code(s): N17.9 - Acute kidney failure, unspecified (4) DM type 2 (diabetes mellitus, type 2) Qualifiers: Diabetes mellitus halfway insulin use: unspecified halfway insulin use status Diabetes mellitus complication status: with unspecified complications Qualified Code(s): E11.8 - Type 2 diabetes mellitus with unspecified complications (5) Coronary artery disease Qualifiers: Coronary Disease-Associated Artery/Lesion type: [place] artery [place] vs. transplanted heart: [place] heart Associated angina: with unspecified angina Qualified Code(s): I25.119 - Atherosclerotic heart disease of [place] coronary artery with unspecified angina pectoris (9) Hypotension Qualifiers: Hypotension type: unspecified hypotension type Qualified Code(s): I95.9 - Hypotension, unspecified (10) Hyperlipidemia Qualifiers: Hyperlipidemia type: unspecified Qualified Code(s): E78.5 - Hyperlipidemia, unspecified (11) COPD (chronic obstructive pulmonary disease) Qualifiers: COPD type: unspecified COPD Qualified Code(s): J44.9 - Chronic obstructive pulmonary disease, unspecified (13) Hypothyroid Qualifiers: Hypothyroidism type: unspecified Qualified Code(s): E03.9 - Hypothyroidism, unspecified (14) UTI (urinary tract infection) Qualifiers: Urinary tract infection type: site unspecified Hematuria presence: without hematuria Qualified Code(s): N39.0 - Urinary tract infection, site not specified
[2018-07-25] MEDS ORDERED: Isosorbide MONOnitrate (24 HR) 30 MG TAB.ER.24H PO SCH (09:00)
[2018-07-25] MEDS ORDERED: Famotidine 20 MG TABLET PO SCH (09:00)
[2018-07-25] MEDS: Gabapentin 400 MG CAPSULE PO SCH ×3 (10:08→21:48)
[2018-07-25] MEDS: Fluticasone Propionate Nasal 50 MCG/SPRAY BOTTLE NS SCH (10:08)
[2018-07-25] MEDS: Cholecalciferol (D-3) 1,000 UNIT TABLET PO SCH (10:08)
--- NOTE | 2018-07-25 10:25 | Nephrology Consult Note ---
Date of Encounter: 07/25/18 Time of Encounter: 12:00 Assessment and Plan (1) ALIRIO (acute kidney injury) Current Visit: Yes Status: Acute Elevated SCr in the setting of UTI sepsis, bactrim use and NSAIDs Needs new labs today UOP noted already 550cc so far since transfer here which is good, continue IVF Await US of kidney Will check CPK, uric acid levels. Will check urine studies: sodium, eosinophils, protein and creatinine Agree with holding lisinopril, iburpofen and all nephrotoxins (2) Atrophy of left kidney Current Visit: Yes Status: Chronic History of Present Illness - Reason for Consult Consult date: 07/25/18 Acute Kidney Injury Requesting physician: Matthew Curiel - History of Present Illness 52 y o female with PMH of HTN, DM, Obesity, recurrent UTIs and nonfunctional [place] with chronic NSAIDs use admitted as a transfer from [facility] where she presented with decerased UOP after recent UTI diagnosis. Also was on bactrim prior. SCr noted at 3.73 with baseline around 1.0. Renal consulted for help with management Past Med Surg Social Fam HX - Past Medical History Medical history: asthma, COPD, coronary artery disease, CVA, diabetes, GERD, hyperlipidemia, hypertension, myocardial infarction, renal disease, seizures, thyroid disease, other Additional medical history: lupus. 1 kidney ( right). anemic Psychiatric history: anxiety, depression - Past Surgical History Surgical History: breast surgery, orthopedic, other, other Additional surgical history: cyst removal right breast. partial toe amputation. carpal tunnel left hand - Social History Smoking Status: Former smoker Smokeless Tobacco Status: No Alcohol use: none Drug use: none - Family History Mother Living Status: Hx Family Cardiac Disorders: Yes (CA) Hx Family GI Disorders: Yes (C DIFF COLITIS) Hx Family Endocrine Disorder: Yes (dm(ii)) Father Living Status: Hx Family Cardiac Disorders: Yes (CA) Sister Living Status: Hx Family Cardiac Disorders: Yes (HTN) Hx Family Cancer: Yes (colon cancer) Hx Family Endocrine Disorder: Yes (DM(II), obesity) Hx Family Neurologic Disorders: Yes (Epilepsy) Brother Hx Family Cardiac Disorders: Yes (HTN) Hx Family Endocrine Disorder: Yes (DM(II)) Son Living Status: Still Living Hx Family Neuromuscular Disorders: Yes (CMT ([id number])) Daughter Adopted: No Living Status: Still Living Hx Family Cardiac Disorders: Yes (Htn) Hx Family Endocrine Disorder: Yes (diabetes) Hx Family Neuromuscular Disorders: Yes (CMT) Medications and Allergies Acetaminophen [Extra Strength Non-Aspirin] 500 mg PO QID PRN 07/01/17 [History] Acetaminophen/Butalbital/Caffe [Fioricet] 1 tab PO Q4H PRN 07/01/17 [History] Albuterol Sulfate [Proair Hfa] 2 puff IH Q4H 07/01/17 [History] Amitriptyline [Elavil] 25 mg PO DAILY 07/01/17 [History] Cholecalciferol (D-3) [Vitamin D] 2,000 unit PO DAILY 07/01/17 [History] Clopidogrel Bisulfate [Plavix] 75 mg PO DAILY 07/01/17 [History] Cyanocobalamin (B-12) [Vitamin B12] 1,000 mcg IM QMONTH 07/01/17 [History] Docusate [Colace] 100 mg PO BID 07/01/17 [History] Duloxetine HCl [Cymbalta] 60 mg PO DAILY 07/01/17 [History] Fluticasone Propionate Nasal [Flonase] 1 spr NS BID 07/01/17 [History] Gabapentin [Neurontin] 800 mg PO TID 07/01/17 [History] Isosorbide MONOnitrate (24 HR) [Imdur] 30 mg PO DAILY 07/01/17 [History] Levothyroxine [Synthroid] 50 mcg PO 0630 07/01/17 [History] Lidocaine [Lidoderm] 1 patch TP Q12H 07/01/17 [History] Linaclotide [Linzess] 72 mcg PO DAILY 07/01/17 [History] Lisinopril [Zestril] 40 mg PO DAILY 07/01/17 [History] Metoprolol [Lopressor] 25 mg PO BID 07/01/17 [History] Norethindrone Acetate [Norethindrone AC ([place])] 5 mg PO DAILY 07/01/17 [History] Oxybutynin [Ditropan] 5 mg PO BID PRN 07/01/17 [History] Pantoprazole Sodium [Protonix] 20 mg PO DAILY 07/01/17 [History] Ranitidine HCl [Acid Code Machine Operator] 150 mg PO BID 07/01/17 [History] Simvastatin [Zocor] 40 mg PO HS 07/01/17 [History] Tramadol HCl [Ultram] 50 mg PO QID PRN 07/01/17 [History] Zonisamide [Zonegran] 100 mg PO BID 07/01/17 [History] diazePAM [Valium] 5 mg PO BID 07/01/17 [History] Phenazopyridine HCl [Pyridium] 200 mg PO TIDAC #6 tab 06/20/18 [Rx] cephALEXin [Keflex] 1,000 mg PO BID #40 capsule 06/20/18 [Rx] Clotrimazole/Betamethasone Dip [Lotrisone Cream] 1 applic TP BID #45 cream..g. 06/26/18 [Rx] Fluconazole [Diflucan] 150 mg PO DAILY #2 tab 06/26/18 [Rx] Ondansetron ODT [Zofran ODT] 4 mg SL Q6HR #24 tab.rapdis 06/26/18 [Rx] Ibuprofen [Ibu] 800 mg PO TID PRN 07/24/18 [History] Allergy/AdvReac Type Severity Reaction Status Date / Time Penicillins [PCN] AdvReac Intermediate Gastrointestinal Verified 07/24/18 16:14 Upset aspirin [ASA] AdvReac Mild Gastrointestinal Verified 07/24/18 16:14 Upset ciprofloxacin AdvReac Gastrointestinal Verified 07/24/18 16:14 Upset latex AdvReac See Verified 07/24/18 16:14 Comments rice AdvReac Gastrointestinal Verified 07/24/18 16:14 Upset Exam - Vital Signs Vital signs: Initial Vital Signs Temp Pulse Resp BP Pulse Ox 98.1 F 72 18 95/57 93 07/25/18 00:00 07/25/18 00:00 07/25/18 00:00 07/25/18 00:00 07/25/18 00:00 Vital Signs - Last 8 Hours Temp Pulse Resp BP Pulse Ox 07/25/18 06:55 97.8 F 76 18 97/60 93 07/25/18 05:26 97.6 F 78 18 99/58 97 Intake and Output 07/24/18 07/25/18 07/25/18 23:59 07:59 15:59 Output Total 200 / 200 350 / 350 Balance -200 / -200 -350 / -350 Output: Urine 200 / 200 350 / 350 Other: # Voids 1 Weight 159.381 kg Blood Glucose* 124 Patient Weight 07/25/18 23:59 Weight 159.381 kg Consult Discharge Plan - Plan Referrals: NONE,PCP [Primary Care Provider] -
[2018-07-25] MEDS ORDERED: Sulfamethoxazole/Trimeth SS 1 TAB PO SCH (11:30)
[2018-07-25] MEDS: Acetaminophen/Butalbital/CaffeineTABLET PO PRN (13:00)
[2018-07-25 14:23] LABS: Bilirubin,Urine Negative (Negative); Blood,Urine Negative (Negative); Clarity,Urine Clear (Clear); Color,Urine Yellow (Yellow); Glucose,Urine (UA) Normal (Normal); Ketones,Urine Negative (Negative); Leukocyte Esterase,Urine Trace (Negative); Nitrite,Urine Negative (Negative); Protein,Urine Negative (Neg-Trace); Specific Gravity,Urine 1.013 (1.010-1.025); Urobilinogen,Urine Normal (Normal)
[2018-07-25 14:27] LABS: Bacteria,Urine None Seen per hpf (None-Few); Hyaline Casts,Urine None Seen per lpf (None-Few); RBC,Urine 0-3 per hpf (0-3); Squamous Epithelial Cell,Urine Many per lpf (None-Few); WBC,Urine 0-3 per hpf (0-3)
[2018-07-25 14:48] LABS: Creatinine,Urine 78 mg/dL; Microalbumin,Urine < 7 mg/L; Protein/Creatinine Ratio,Urine 0.17 mg/mg (0.00-0.20)
[2018-07-25 15:41] LABS: Basophils % 0.2 %; Eosinophils # 0.1 K/mcL (0.0-0.6); Eosinophils % 1.9 %; Hematocrit 32.8 % (35.3-44.9); Hemoglobin 10.2 g/dL (11.5-15.4); Immature Granulocytes % 0.2 % (0-4); Lymphocytes # 1.1 K/mcL (0.6-4.6); Lymphocytes % 26.2 %; Mean Corpuscular HGB Conc 31.1 g/dL (31.6-35.5); Mean Corpuscular Hemoglobin 28.7 pg (28.0-33.3); Mean Corpuscular Volume 92.4 fL (83.0-100.0); Mean Platelet Volume 9.3 fL (9.4-12.4); Monocytes # 0.2 K/mcL (0.0-1.3); Monocytes % 5.3 %; Neutrophils # 2.9 K/mcL (1.6-8.9); Platelet Count 198 K/mcL (140-400); Red Blood Count 3.55 M/mcL (3.82-4.97); Red Cell Distribution Width 15.6 % (11.5-14.5); Segmented Neutrophils % 66.2 %
[2018-07-25] MEDS ORDERED: Piperacillin/Tazobactam 3.375 GM in 0.9 % Sodium Chloride Mini Bag 100 ML IVPB SCH (16:00)
[2018-07-25 16:08] LABS: Calcium 8.6 mg/dL (8.6-10.3); Magnesium 1.9 mg/dL (1.6-2.6); Phosphorous 3.8 mg/dL (2.7-4.5); Potassium 5.1 mEq/L (3.5-5.1); Uric Acid 9.5 mg/dL (2.3-7.6)
[2018-07-25 16:22] LABS: Thyroid Stimulating Hormone 0.421 mcIU/mL (0.340-5.600)
[2018-07-25] MEDS ORDERED: Nitrofurantoin (BID) 100 MG CAPSULE PO SCH ×2 (17:00)
[2018-07-25] MEDS: Famotidine 20 MG TABLET PO SCH (21:48)
[2018-07-26] MEDS: Ondansetron ODT 4 MG TAB.RAPDIS SL SCH ×5 (00:22→23:28)
[2018-07-26] MEDS: Acetaminophen 325 MG TABLET PO PRN ×2 (01:08→11:47)
[2018-07-26] MEDS: *HR* Heparin 5,000 UNIT/ML VIAL SQ SCH ×3 (05:47→20:54)
[2018-07-26] MEDS: Insulin LISPRO 300 UNITS/3 ML VIAL SQ SCH ×4 (08:03→20:54)
[2018-07-26] MEDS: Cholecalciferol (D-3) 1,000 UNIT TABLET PO SCH (08:08)
[2018-07-26] MEDS: Fluticasone Propionate Nasal 50 MCG/SPRAY BOTTLE NS SCH (08:09)
[2018-07-26] MEDS: Famotidine 20 MG TABLET PO SCH ×2 (08:09→20:54)
[2018-07-26] MEDS: Gabapentin 400 MG CAPSULE PO SCH ×3 (08:13→20:54)
[2018-07-26 10:44] LABS: Basophils % 0.3 %; Eosinophils # 0.1 K/mcL (0.0-0.6); Eosinophils % 1.9 %; Hematocrit 36.2 % (35.3-44.9); Hemoglobin 11.2 g/dL (11.5-15.4); Immature Granulocytes % 1.3 % (0-4); Lymphocytes # 1.1 K/mcL (0.6-4.6); Lymphocytes % 35.1 %; Mean Corpuscular HGB Conc 30.9 g/dL (31.6-35.5); Mean Corpuscular Hemoglobin 28.9 pg (28.0-33.3); Mean Corpuscular Volume 93.3 fL (83.0-100.0); Mean Platelet Volume 9.8 fL (9.4-12.4); Monocytes # 0.2 K/mcL (0.0-1.3); Monocytes % 6.5 %; Neutrophils # 1.7 K/mcL (1.6-8.9); Platelet Count 161 K/mcL (140-400); Red Blood Count 3.88 M/mcL (3.82-4.97); Red Cell Distribution Width 15.7 % (11.5-14.5); Segmented Neutrophils % 54.9 %
[2018-07-26 10:55] LABS: BUN/Creatinine Ratio 31 (6-26); Blood Urea Nitrogen 34 mg/dL (6-20); Calcium 9.1 mg/dL (8.6-10.3); Carbon Dioxide 25 mEq/L (23-29); Chloride 114 mEq/L (98-107); Glucose 175 mg/dL (70-105); Magnesium 1.7 mg/dL (1.6-2.6); Osmolality,Calculated 308 (280-300); Phosphorous 2.7 mg/dL (2.7-4.5); Sodium 143 mEq/L (136-145); eGFR For Non-African Americans 53 (> 60)
--- NOTE | 2018-07-26 11:33 | Nephrology Progress Note ---
Date of Encounter: 07/26/18 Time of Encounter: 12:00 - Assessment and Plan (1) ALIRIO (acute kidney injury) Current Visit: Yes Status: Acute SCr back to baseline at 1.08, GFR 53 UOP noted at 800cc in the ppast 24hrs Continue to avoid nephrotoxins if possible Uric acid elevated consistent with pre-renal state, should normalize as wekk. CPK WNL Urine studies unremarkable Will signoff, please reconsult prn. Might be beneficial given functional solitary kidney status to followup with nephrology within 6 weeks or so (2) Atrophy of left kidney Current Visit: Yes Status: Chronic For outpatient managment. CT showed no hydronephrosis (3) UTI (urinary tract infection) Current Visit: Yes Status: Acute Per primary team Qualifiers: Urinary tract infection type: site unspecified Hematuria presence: without hematuria Qualified Code(s): N39.0 - Urinary tract infection, site not specified Subjective Interval history: Pt seen and examined Objective - Vital Signs Vital signs: Vital Signs Temp Pulse Resp BP Pulse Ox 07/26/18 07:43 97.7 F 70 18 131/80 99 07/26/18 04:46 98.2 F 72 18 111/68 97 07/26/18 00:20 98.2 F 71 18 105/74 93 07/26/18 00:07 13 97 07/25/18 21:57 82 124/71 95 07/25/18 21:44 95 07/25/18 19:49 98.4 F 84 18 92/61 96 07/25/18 16:29 76 92/59 07/25/18 15:48 98.0 F 82 18 90/59 94 07/25/18 12:34 98.4 F 92 18 99/48 96 Intake and Output 07/25/18 07/26/18 07/26/18 23:59 07:59 15:59 Intake Total 2700 / 2700 340 / 340 Output Total 0 / 0 Balance 2700 / 2700 340 / 340 Intake: IV Fluids 2100 / 2100 Lactated Ringers 1,000 ML @ 100 2000 / 2000 mls/hr IVC .Q10H RAAD Rx#: [id number] Zosyn 3.375 GM In 0.9 % Sodium 100 / 100 Chloride (Mini-Bag +) 100 ML @ 25 mls/hr IVPB Q8HR RAAD Rx#: [id number] Oral 600 / 600 340 / 340 Output: Urine 0 / 0 Other: Meal Dinner Breakfast Percent of Meal Consumed 100% 100% Weight 160.2 kg Blood Glucose* 166 100 Patient Weight 07/26/18 23:59 Weight 160.2 kg - Lab 07/26/18 04:00 07/26/18 09:50 Most recent lab results Calcium 9.1 mg/dL (8.6-10.3) 07/26/18 09:50 Phosphorus 2.7 mg/dL (2.7-4.5) 07/26/18 09:50 Magnesium 1.7 mg/dL (1.6-2.6) 07/26/18 09:50 Urine Creatinine 78 mg/dL 07/25/18 14:14 Urine Sodium 70.0 mEq/L 07/25/18 14:14 Urine Total Protein 13 mg/dL (1-14) 07/25/18 14:14 Consult Discharge Plan - Plan Referrals: NONE,PCP [Primary Care Provider] -
[2018-07-26 11:44] LABS: Estimated Average Glucose 174 mg/dl; Hemoglobin A1C 7.7 %
[2018-07-26] MEDS: traMADol 50 MG TABLET PO PRN ×2 (15:18→22:15)
--- NOTE | 2018-07-26 22:50 | Internal Med Progress Note ---
Hospitalist Progress Note - Encounter Date of Encounter: 07/26/18 Time of Encounter: 19:00 - Subjective Interval History: SUBJECTIVE: The patient is a 52-year-old woman admitted with dehydration/acute kidney injury. She has been bedbound for many years. Her weakness subsided. Her chronic generalized pain seems to be under fair control. She makes good amounts of urine (Connelly catheter). Denies chest pain. Denies difficulty breathing, coughing and wheezing. The patient is morbidly obese. OBJECTIVE: Skin: Free of rash and discoloration. ENMT: Oral/pharyngeal mucosa is normal in appearance. Eyes: Sclera is white. There is no discharge from eyes. Respiratory: Normal breath sounds; no crackles or wheezes. CV: Heart is regular; no gallop or murmur. GI: Abdomen is soft and not tender. There is no palpable mass or visceromegaly. Neuro: There is no focal deficits. ADDITIONAL DATA: Hemoglobin is 11.2 with WBC of 3.1 thousand and normal platelet count. Electrolytes are normal. Creatinine is 1.08; 2.01 at admission. ASSESSMENT AND PLAN: Acute renal failure in a patient with atrophic left kidneysecondary to dehydration. Resolved with IV fluids. COPD/obstructive sleep apnea. Stable. To continue low flow nasal cannula oxygen. Coronary artery disease. Stable. Continue Plavix and Zocor. Hyperlipidemia. She is on Zocor. The patient has morbid obesity with BMI of 76.4. She has been bedbound for several years. - Exam Vitals: Temp Pulse Resp BP Pulse Ox 98.0 F 89 16 118/62 97 07/26/18 20:42 07/26/18 20:42 07/26/18 20:42 07/26/18 20:42 07/26/18 21:01 Exam: xx - Assessment and Plan (1) Acute renal failure Current Visit: Yes Status: Inactive (2) Atrophy of left kidney Current Visit: Yes Status: Chronic (3) COPD (chronic obstructive pulmonary disease) Current Visit: No Status: Chronic (4) PETROS (obstructive sleep apnea) Current Visit: Yes Status: Chronic (5) Coronary artery disease Current Visit: Yes Status: Chronic (6) DM type 2 (diabetes mellitus, type 2) Current Visit: Yes Status: Chronic (7) Hyperlipidemia Current Visit: No Status: Chronic (8) Hypothyroid Current Visit: No Status: Chronic (9) Chronic pain associated with significant psychosocial dysfunction Current Visit: Yes Status: Chronic (10) Morbid obesity with BMI of 70 and over, adult Current Visit: Yes Status: Chronic (11) Depression with anxiety Current Visit: No Status: Chronic - Time Spent with Patient Total time spent is greater than 50% in coordination of care (as documented) at patient's floor/unit and/or counseling patient: Internal Medicine: Result - Labs CBC & Chem 7: 07/26/18 04:00 07/26/18 09:50 Labs: Short CBC 07/26/18 Range/Units 04:00 WBC 3.1 L (4.3-11.1) K/mcL Hgb 11.2 L (11.5-15.4) g/dL Hct 36.2 (35.3-44.9) % Plt Count 161 (140-400) K/mcL Neutrophils # 1.7 (1.6-8.9) K/mcL BMP 07/26/18 09:50 Sodium 143 Potassium 5.0 Chloride 114 H Carbon Dioxide 25 BUN 34 H Creatinine 1.08 Glucose 175 H Calcium 9.1 - Impressions Impressions Lumbar Spine X-Ray 07/26/18 10:25 IMPRESSION: 1. No acute fracture or traumatic listhesis of the lumbar spine. 2. Multilevel degenerative changes as detailed in body of report, most pronounced at the L5-S1 level. 3. Degenerative changes of the sacroiliac joints. D/ / Tre Leon / Tre Leon Interpreting Provider: Tre Leon Consult Discharge Plan - Plan Referrals: NONE,PCP [Primary Care Provider] - (1) Acute renal failure Qualifiers: Acute renal failure type: unspecified Qualified Code(s): N17.9 - Acute kidney failure, unspecified (3) COPD (chronic obstructive pulmonary disease) Qualifiers: COPD type: unspecified COPD Qualified Code(s): J44.9 - Chronic obstructive pulmonary disease, unspecified (5) Coronary artery disease Qualifiers: Coronary Disease-Associated Artery/Lesion type: [place] artery [place] vs. transplanted heart: [place] heart Associated angina: with unspecified angina Qualified Code(s): I25.119 - Atherosclerotic heart disease of [place] coronary artery with unspecified angina pectoris (6) DM type 2 (diabetes mellitus, type 2) Qualifiers: Diabetes mellitus terminal make up operator insulin use: unspecified penitentiary insulin use status Diabetes mellitus complication status: with unspecified complications Qualified Code(s): E11.8 - Type 2 diabetes mellitus with unspecified complications (7) Hyperlipidemia Qualifiers: Hyperlipidemia type: unspecified Qualified Code(s): E78.5 - Hyperlipidemia, unspecified (8) Hypothyroid Qualifiers: Hypothyroidism type: unspecified Qualified Code(s): E03.9 - Hypothyroidism, unspecified
[2018-07-26] MEDS: Acetaminophen/Butalbital/CaffeineTABLET PO PRN (23:28)
[2018-07-27] MEDS: Acetaminophen 325 MG TABLET PO PRN (01:06)
[2018-07-27] MEDS: Ondansetron ODT 4 MG TAB.RAPDIS SL SCH ×2 (05:09→11:38)
[2018-07-27] MEDS: *HR* Heparin 5,000 UNIT/ML VIAL SQ SCH (05:10)
[2018-07-27] MEDS: Insulin LISPRO 300 UNITS/3 ML VIAL SQ SCH ×2 (07:33→11:34)
[2018-07-27] MEDS: Cholecalciferol (D-3) 1,000 UNIT TABLET PO SCH (09:54)
[2018-07-27] MEDS: Famotidine 20 MG TABLET PO SCH (09:54)
[2018-07-27] MEDS: Gabapentin 400 MG CAPSULE PO SCH (09:54)
[2018-07-27] MEDS: Fluticasone Propionate Nasal 50 MCG/SPRAY BOTTLE NS SCH (09:55)
[2018-07-27 11:00] VITALS: BP 135/77
--- NOTE | 2018-07-27 13:11 | Discharge Summary ---
Orders not resulted at time of discharge: Pending orders 07/25/18 15:17 Culture,Blood [BC] Stat Date of Encounter: 07/27/18 Time of Encounter: 13:08 - Discharge Diagnosis (1) Acute renal failure Priority: Primary Status: Acute Qualifiers: Acute renal failure type: unspecified Qualified Code(s): N17.9 - Acute kidney failure, unspecified (2) Atrophy of left kidney Priority: Secondary Status: Chronic (3) COPD (chronic obstructive pulmonary disease) Priority: Secondary Status: Chronic Qualifiers: COPD type: unspecified COPD Qualified Code(s): J44.9 - Chronic obstructive pulmonary disease, unspecified (4) PETROS (obstructive sleep apnea) Priority: Secondary Status: Chronic (5) Coronary artery disease Priority: Secondary Status: Chronic Qualifiers: Coronary Disease-Associated Artery/Lesion type: [place] artery [place] vs. transplanted heart: [place] heart Associated angina: with unspecified angina Qualified Code(s): I25.119 - Atherosclerotic heart disease of [place] coronary artery with unspecified angina pectoris (6) DM type 2 (diabetes mellitus, type 2) Priority: Secondary Status: Chronic Qualifiers: Diabetes mellitus terminal superintendent insulin use: without skilled nursing use Diabetes mellitus complication status: with unspecified complications Qualified Code(s): E11.8 - Type 2 diabetes mellitus with unspecified complications (7) Hyperlipidemia Priority: Secondary Status: Chronic Qualifiers: Hyperlipidemia type: unspecified Qualified Code(s): E78.5 - Hyperlipidemia, unspecified (8) Hypothyroid Priority: Secondary Status: Chronic Qualifiers: Hypothyroidism type: unspecified Qualified Code(s): E03.9 - Hypothyroidism, unspecified (9) Chronic pain associated with significant psychosocial dysfunction Priority: Secondary Status: Chronic (10) Morbid obesity with BMI of 70 and over, adult Priority: Secondary Status: Chronic (11) Depression with anxiety Priority: Secondary Status: Chronic Hospital course: HOSPITAL COURSE: The patient is a 52-year-old woman admitted with dehydration/acute kidney injury. She has had atrophic left kidney. He suffers from morbid obesity with BMI of 75.1; bed bound for years. She got IV fluids. Connelly catheter was inserted. Nephrology consult was obtained. We got her to her previous baseline by the end of this hospitalization. Creatinine at admission was 2.01; 1.08 at the discharge. CONDITION AT DISCHARGE: She feels good. She has good appetite. Denies abdominal pain, nausea and vomiting. She makes good amounts of urine. Denies chest pain and difficulty breathing. Denies coughing and wheezing. The patient is markedly obesea BMI of 75.1. Skin: Free of rash and discoloration. Respiratory: Normal breath sounds with no crackles and wheezes bilaterally. CV: Heart is regular with no gallop or murmur. GI: Abdomen is flat and soft with no palpable mass or visceromegaly. Neuro exam: There is no focal deficits. Normal speech, swallowing and gait. SEE DISCHARGE ORDERS/MEDICATIONS She goes homewill be under care of her family. Discharge discussed with: patient, family - Time Spent with Patient Total time spent providing and/or coordinating discharge services: Time spent: Greater than 30 minutes (40 minutes...) - Discharge Medications Prescriptions: Continue Clopidogrel Bisulfate [Plavix] 75 mg PO DAILY Zonisamide [Zonegran] 100 mg PO BID Lisinopril [Zestril] 40 mg PO DAILY Fluticasone Propionate Nasal [Flonase] 1 spr NS BID Tramadol HCl [Ultram] 50 mg PO QID PRN PRN Reason: Pain Pantoprazole Sodium [Protonix] 20 mg PO DAILY Linaclotide [Linzess] 72 mcg PO DAILY Oxybutynin [Ditropan] 5 mg PO BID Isosorbide MONOnitrate (24 HR) [Imdur] 30 mg PO DAILY Metoprolol [Lopressor] 25 mg PO BID Levothyroxine [Synthroid] 50 mcg PO 0630 Cyanocobalamin (B-12) [Vitamin B12] 1,000 mcg IM QMONTH Simvastatin [Zocor] 40 mg PO HS Ranitidine HCl [Acid Cutting Machine Tender] 150 mg PO BID Duloxetine HCl [Cymbalta] 60 mg PO DAILY Amitriptyline [Elavil] 25 mg PO HS Gabapentin [Neurontin] 800 mg PO TID Docusate [Colace] 100 mg PO BID Cholecalciferol (D-3) [Vitamin D] 2,000 unit PO DAILY Acetaminophen [Extra Strength Non-Aspirin] 500 mg PO QID PRN PRN Reason: Pain diazePAM [Valium] 2 mg PO BID hydrOXYzine HCl [Hydroxyzine HCl] 50 mg PO TID Lactulose 10 ml PO TID PRN PRN Reason: Constipation Tizanidine HCl [Zanaflex] 2 - 4 mg PO TID PRN PRN Reason: Muscle Spasm Clotrimazole/Betamethasone Dip [Lotrisone Cream] 1 applic TP BID #45 cream..g. Ondansetron ODT [Zofran ODT] 4 mg SL Q6HR #24 tab.rapdis Ibuprofen [Ibu] 800 mg PO TID PRN PRN Reason: Pain Changed Albuterol Sulfate [Proair Hfa] 2 puff IH Q4H PRN #0 PRN Reason: Wheezing Discontinued cephALEXin [Keflex] 250 mg PO DAILY Home Medications: Acetaminophen [Extra Strength Non-Aspirin] 500 mg PO QID PRN 07/01/17 [History] Amitriptyline [Elavil] 25 mg PO HS 07/01/17 [History] Cholecalciferol (D-3) [Vitamin D] 2,000 unit PO DAILY 07/01/17 [History] Clopidogrel Bisulfate [Plavix] 75 mg PO DAILY 07/01/17 [History] Cyanocobalamin (B-12) [Vitamin B12] 1,000 mcg IM QMONTH 07/01/17 [History] Docusate [Colace] 100 mg PO BID 07/01/17 [History] Duloxetine HCl [Cymbalta] 60 mg PO DAILY 07/01/17 [History] Fluticasone Propionate Nasal [Flonase] 1 spr NS BID 07/01/17 [History] Gabapentin [Neurontin] 800 mg PO TID 07/01/17 [History] Isosorbide MONOnitrate (24 HR) [Imdur] 30 mg PO DAILY 07/01/17 [History] Levothyroxine [Synthroid] 50 mcg PO 30 07/01/17 [History] Linaclotide [Linzess] 72 mcg PO DAILY 07/01/17 [History] Lisinopril [Zestril] 40 mg PO DAILY 07/01/17 [History] Metoprolol [Lopressor] 25 mg PO BID 07/01/17 [History] Oxybutynin [Ditropan] 5 mg PO BID 07/01/17 [History] Pantoprazole Sodium [Protonix] 20 mg PO DAILY 07/01/17 [History] Ranitidine HCl [Acid Cutting Machine Tender] 150 mg PO BID 07/01/17 [History] Simvastatin [Zocor] 40 mg PO HS 07/01/17 [History] Tramadol HCl [Ultram] 50 mg PO QID PRN 07/01/17 [History] Zonisamide [Zonegran] 100 mg PO BID 07/01/17 [History] Clotrimazole/Betamethasone Dip [Lotrisone Cream] 1 applic TP BID #45 cream..g. 06/26/18 [Rx] Ondansetron ODT [Zofran ODT] 4 mg SL Q6HR #24 tab.rapdis 06/26/18 [Rx] Ibuprofen [Ibu] 800 mg PO TID PRN 07/24/18 [History] Lactulose 10 ml PO TID PRN 07/26/18 [History] Tizanidine HCl [Zanaflex] 2 - 4 mg PO TID PRN 07/26/18 [History] diazePAM [Valium] 2 mg PO BID 07/26/18 [History] hydrOXYzine HCl [Hydroxyzine HCl] 50 mg PO TID 07/26/18 [History] Albuterol Sulfate [Proair Hfa] 2 puff IH Q4H PRN #0 07/27/18 [Rx] Allergies/Adverse Reactions: Allergy/AdvReac Type Severity Reaction Status Date / Time Penicillins [PCN] AdvReac Intermediate Gastrointestinal Verified 07/24/18 16:14 Upset aspirin [ASA] AdvReac Mild Gastrointestinal Verified 07/24/18 16:14 Upset ciprofloxacin AdvReac Gastrointestinal Verified 07/24/18 16:14 Upset latex AdvReac See Verified 07/24/18 16:14 Comments rice AdvReac Gastrointestinal Verified 07/24/18 16:14 Upset Date of admission: 07/24/18 23:44 Primary care physician: PCP NONE Consults: 07/25/18 07:40 Consult to Nephrology [CONS] Routine Consulting Provider: Kidney Nadege/MICHAEL/REINALDO/VARSHA Reason for Consult: melisa Call Completed: No 07/27/18 10:37 Consult to Occupational Therapy [CONS] Routine Comment: Evaluate, develop and implement POC Reason for Consult: d/c planning Does patient have active BEDREST order?: No Is patient medically & hemodynamically stable?: Yes Consult to Physical Therapy [CONS] Routine Comment: Evaluate, develop and implement POC Reason for Consult: d/c planning Does patient have active BEDREST order?: No Is patient medically & hemodynamically stable?: Yes Discharging clinician: Chano Garg Anticipated date of discharge: 07/27/18 - Constitutional Vitals: Temp Pulse Resp BP Pulse Ox 97.6 F 74 16 135/77 100 07/27/18 10:54 07/27/18 10:54 07/27/18 10:54 07/27/18 10:54 07/27/18 10:54 General appearance: Present: A&O X 3, no acute distress, answers questions appropriately Exam: xx - Patient Status Disposition: Home, Self-Care Condition: Fair Functional capacity at discharge: bed bound Overall status at discharge: patient is back to baseline - Discharge Instructions Follow Up With: Orion Clements, MANAGER ENVIRONMENTAL SERVICES [Advanced Practice Nurse] - 08/03/18 1:00 pm (Please follow up as schedule..) NONE,PCP [Primary Care Provider] - - Diet and Activity Activity: other (bed-bound...) Diet: diabetic diet
== END 2018-07-27 15:29 | disposition home or self-care (01) ==
LOC: 2ANU → SUATTDRO 23:44
PROVIDERS: ADMIT Internal Medicine; ATTEND Internal Medicine

== ENCOUNTER 2018-12-16 17:34 | Observation (INO) ==
[2018-12-16] MEDS ORDERED: Ondansetron 4 MG/2 ML VIAL IVP ONE (18:06)
[2018-12-16] MEDS ORDERED: Hyoscyamine SL 0.125 MG TAB.SUBL SL STA (18:06)
[2018-12-16] MEDS ORDERED: 0.9 % Sodium Chloride 1,000 ML IVC ONE ×2 (18:07→20:39)
[2018-12-16 18:13] LABS: Bilirubin,Urine Small (Negative); Blood,Urine Small (Negative); Clarity,Urine Cloudy (Clear); Color,Urine Dark Yellow (Yellow); Glucose,Urine (UA) 100 mg/dL (Normal); Ketones,Urine 15 mg/dL (Negative); Leukocyte Esterase,Urine Small (Negative); Nitrite,Urine Negative (Negative); Protein,Urine 100 mg/dL (Neg-Trace); Specific Gravity,Urine 1.029 (1.010-1.025); Urobilinogen,Urine Normal (Normal)
[2018-12-16 18:16] LABS: Bacteria,Urine Few per hpf (None-Few); Squamous Epithelial Cell,Urine Many per lpf (None-Few)
[2018-12-16 18:48] LABS: Basophils % 0.3 %; Eosinophils % 0.6 %; Hematocrit 39.8 % (35.3-44.9); Immature Granulocytes % 0.3 % (0-4); Lymphocytes # 1.3 K/mcL (0.6-4.6); Lymphocytes % 20.7 %; Mean Corpuscular HGB Conc 32.7 g/dL (31.6-35.5); Mean Corpuscular Hemoglobin 30.1 pg (28.0-33.3); Mean Corpuscular Volume 92.1 fL (83.0-100.0); Mean Platelet Volume 9.3 fL (9.4-12.4); Monocytes # 0.3 K/mcL (0.0-1.3); Neutrophils # 4.6 K/mcL (1.6-8.9); Platelet Count 273 K/mcL (140-400); Red Blood Count 4.32 M/mcL (3.82-4.97); Red Cell Distribution Width 15.2 % (11.5-14.5); Segmented Neutrophils % 73.1 %; White Blood Count 6.2 K/mcL (4.3-11.1)
[2018-12-16 18:58] LABS: Alanine Aminotransferase 7 Units/L (7-52); Albumin 4.1 g/dL (3.5-5.7); Albumin/Globulin Ratio 1.3 (1.1-2.2); Alkaline Phosphatase 74 Units/L (34-104); Aspartate Amino Transferase 11 Units/L (13-39); BUN/Creatinine Ratio 11 (6-26); Bilirubin,Direct 0.1 mg/dL (0.0-0.2); Bilirubin,Indirect 0.3 mg/dL (0.0-1.2); Bilirubin,Total 0.4 mg/dL (0.3-1.0); Blood Urea Nitrogen 10 mg/dL (6-20); Calcium 9.4 mg/dL (8.6-10.3); Carbon Dioxide 20 mEq/L (23-29); Chloride 108 mEq/L (98-107); Globulin 3.2 g/dL (2.4-3.5); Glucose 153 mg/dL (70-105); Lipase 53 Units/L (11-82); Osmolality,Calculated 294 (280-300); Potassium 3.6 mEq/L (3.5-5.1); Sodium 141 mEq/L (136-145); Total Protein 7.3 g/dL (6.4-8.9); eGFR For African Americans > 60 (> 60); eGFR For Non-African Americans > 60 (> 60)
[2018-12-16] MEDS ORDERED: *HR* FentaNYL (PF) 100 MCG/2 ML VIAL IVP ONE (19:41)
[2018-12-16] MEDS ORDERED: Cefepime HCl 1,000 MG in Water for inj. (sterile) 10 ML IVP STA (19:53)
[2018-12-17] MEDS ORDERED: *HR* Promethazine 25 MG/ML VIAL IVP PRN (00:46)
[2018-12-17] MEDS ORDERED: Ondansetron 4 MG/2 ML VIAL IVP PRN (04:05)
[2018-12-17] MEDS ORDERED: Naloxone 0.4 MG/ML INJ IVP PRN (04:05)
[2018-12-17] MEDS: Gabapentin 400 MG CAPSULE PO SCH ×3 (04:07→20:17)
[2018-12-17] MEDS ORDERED: D5% in Water 1,000 ML IVC PRN (04:19)
[2018-12-17] MEDS ORDERED: Dextrose Gel 15 GM/37.5 ML TUBE PO PRN ×2 (04:19)
[2018-12-17] MEDS ORDERED: *HR* Dextrose 50 % in Water (Syg) 50 ML SYRINGE IVP PRN (04:19)
[2018-12-17 05:14] LABS: Hematocrit 35.7 % (35.3-44.9); Mean Corpuscular HGB Conc 31.7 g/dL (31.6-35.5); Mean Corpuscular Hemoglobin 29.2 pg (28.0-33.3); Mean Corpuscular Volume 92.2 fL (83.0-100.0); Mean Platelet Volume 9.3 fL (9.4-12.4); Platelet Count 222 K/mcL (140-400); Red Blood Count 3.87 M/mcL (3.82-4.97); Red Cell Distribution Width 15.4 % (11.5-14.5); White Blood Count 5.6 K/mcL (4.3-11.1)
[2018-12-17 05:16] LABS: Hemoglobin 11.3 g/dL (11.5-15.4)
[2018-12-17 05:18] LABS: BUN/Creatinine Ratio 12 (6-26); Blood Urea Nitrogen 9 mg/dL (6-20); Calcium 8.8 mg/dL (8.6-10.3); Carbon Dioxide 17 mEq/L (23-29); Chloride 111 mEq/L (98-107); Glucose 117 mg/dL (70-105); Osmolality,Calculated 296 (280-300); Potassium 3.5 mEq/L (3.5-5.1); Sodium 143 mEq/L (136-145); eGFR For African Americans > 60 (> 60); eGFR For Non-African Americans > 60 (> 60)
[2018-12-17] MEDS: Insulin LISPRO 300 UNITS/3 ML VIAL SQ SCH ×3 (05:37→17:49)
[2018-12-17] MEDS: *HR* Heparin 5,000 UNIT/ML VIAL SQ SCH ×2 (05:37→17:47)
[2018-12-17] MEDS: 0.9 % Sodium Chloride 1,000 ML IVC SCH ×2 (05:37→13:21)
[2018-12-17] MEDS: Nystatin POWDER 30 GM BOTTLE TP SCH ×3 (06:21→20:26)
[2018-12-17] MEDS: Cefepime HCl 1,000 MG in Water for inj. (sterile) 10 ML IVP SCH ×2 (08:43→17:43)
[2018-12-17] MEDS ORDERED: *HR* OxyCODONE/APAP 5/325 TABLET PO PRN (10:39)
[2018-12-17 10:57] LABS: Estimated Average Glucose 151 mg/dl
[2018-12-17] MEDS ORDERED: Clotrimazole Vag CRM 45 GM TUBE VG SCH (21:00)
[2018-12-17] MEDS ORDERED: Clotrimazole 1% CRM 15 GM TUBE TP SCH (21:00)
[2018-12-18] MEDS: Insulin LISPRO 300 UNITS/3 ML VIAL SQ SCH ×2 (00:06→06:22)
[2018-12-18] MEDS: Cefepime HCl 1,000 MG in Water for inj. (sterile) 10 ML IVP SCH (00:15)
[2018-12-18 04:33] LABS: Hematocrit 37.7 % (35.3-44.9); Hemoglobin 11.7 g/dL (11.5-15.4); Mean Corpuscular Hemoglobin 30.1 pg (28.0-33.3); Mean Corpuscular Volume 96.9 fL (83.0-100.0); Mean Platelet Volume 9.4 fL (9.4-12.4); Platelet Count 225 K/mcL (140-400); Red Blood Count 3.89 M/mcL (3.82-4.97); Red Cell Distribution Width 15.7 % (11.5-14.5); White Blood Count 4.2 K/mcL (4.3-11.1)
[2018-12-18 04:54] LABS: BUN/Creatinine Ratio 8 (6-26); Blood Urea Nitrogen 7 mg/dL (6-20); Calcium 8.7 mg/dL (8.6-10.3); Carbon Dioxide 21 mEq/L (23-29); Chloride 111 mEq/L (98-107); Glucose 143 mg/dL (70-105); Osmolality,Calculated 300 (280-300); Potassium 3.6 mEq/L (3.5-5.1); Sodium 145 mEq/L (136-145); eGFR For African Americans > 60 (> 60); eGFR For Non-African Americans > 60 (> 60)
[2018-12-18] MEDS: *HR* Heparin 5,000 UNIT/ML VIAL SQ SCH (05:35)
[2018-12-18 08:25] VITALS: BP 151/97
[2018-12-18] MEDS ORDERED: Aminoglycoside Consult 1 EACH MC ONE (12:49)
== END 2018-12-18 12:50 | disposition home or self-care (01) ==
LOC: 3BNU 17:34 → EMEROOARM 17:34 → SUATTDRO 20:54 → 3BNU 21:34
PROVIDERS: ADMIT Pediatrics; ATTEND Family Medicine

== ENCOUNTER 2020-05-29 18:22 | Inpatient (IN) ==
[2020-05-29 19:18] LABS: Basophils % 0.2 %; Hemoglobin 12.5 g/dL (11.5-15.4); Immature Granulocytes % 0.5 % (0-4); Lymphocytes # 0.8 K/mcL (0.6-4.6); Mean Corpuscular HGB Conc 32.9 g/dL (31.6-35.5); Mean Corpuscular Hemoglobin 29.7 pg (28.0-33.3); Mean Corpuscular Volume 90.3 fL (83.0-100.0); Mean Platelet Volume 9.6 fL (9.4-12.4); Monocytes # 0.2 K/mcL (0.0-1.3); Neutrophils # 4.4 K/mcL (1.6-8.9); Platelet Count 220 K/mcL (140-400); Red Blood Count 4.21 M/mcL (3.82-4.97); Red Cell Distribution Width 15.4 % (11.5-14.5); Segmented Neutrophils % 80.3 %; White Blood Count 5.5 K/mcL (4.3-11.1)
[2020-05-29 19:26] LABS: INR 1.1; Prothrombin Time 13.2 Seconds (9.4-12.1)
[2020-05-29 19:30] LABS: Activated Partial Thrombo Time 25.8 Seconds (26.0-36.0)
[2020-05-29 19:39] LABS: Albumin 3.8 g/dL (3.5-5.7); Bilirubin,Total 0.3 mg/dL (0.3-1.0); Calcium 8.6 mg/dL (8.6-10.3); Globulin 3.9 g/dL (2.4-3.5); Potassium 3.7 mEq/L (3.5-5.1); Total Protein 7.7 g/dL (6.4-8.9)
[2020-05-29] MEDS ORDERED: 0.9 % Sodium Chloride 1,000 ML IVC ONE ×2 (19:39→21:36)
[2020-05-29] MEDS ORDERED: cefTRIAXone 1,000 MG in Water for inj. (sterile) 10 ML IVP ONE (19:56)
[2020-05-29] MEDS ORDERED: Azithromycin 500 MG in 0.9 % Sodium Chloride 250 ML IVPB ONE (19:56)
[2020-05-29] MEDS ORDERED: Naloxone 0.4 MG/ML INJ IVP PRN (22:32)
[2020-05-29] MEDS ORDERED: Ondansetron 4 MG/2 ML VIAL IVP PRN (22:32)
[2020-05-30 00:34] LABS: Hematocrit 34.2 % (35.3-44.9); Hemoglobin 10.9 g/dL (11.5-15.4); Mean Corpuscular HGB Conc 31.9 g/dL (31.6-35.5); Mean Corpuscular Hemoglobin 29.1 pg (28.0-33.3); Mean Corpuscular Volume 91.2 fL (83.0-100.0); Mean Platelet Volume 9.6 fL (9.4-12.4); Platelet Count 190 K/mcL (140-400); Red Blood Count 3.75 M/mcL (3.82-4.97); Red Cell Distribution Width 15.5 % (11.5-14.5); White Blood Count 4.4 K/mcL (4.3-11.1)
[2020-05-30 01:03] LABS: C-Reactive Protein 243 mg/L (Less than 10); Creatine Kinase 86 Units/L (30-223); Lactate Dehydrogenase 209 Units/L (140-271); Potassium 3.7 mEq/L (3.5-5.1)
[2020-05-30 01:04] LABS: Calcium 7.4 mg/dL (8.6-10.3)
[2020-05-30 02:41] LABS: Ferritin 97 ng/mL (10-120)
[2020-05-30] MEDS: Acetaminophen 325 MG TABLET PO PRN (04:46)
[2020-05-30 04:55] LABS: Bacteria,Urine Few per hpf (None-Few); Bilirubin,Urine Negative (Negative); Blood,Urine Negative (Negative); Clarity,Urine Clear (Clear); Color,Urine Yellow (Yellow); Glucose,Urine (UA) Normal (Normal); Ketones,Urine Negative (Negative); Leukocyte Esterase,Urine Moderate (Negative); Mucus,Urine Few per lpf (None-Few); Nitrite,Urine Negative (Negative); Protein,Urine 100 mg/dL (Neg-Trace); RBC,Urine 0-3 per hpf (0-3); Specific Gravity,Urine 1.026 (1.010-1.025); Squamous Epithelial Cell,Urine Few per hpf (None-Few); Urobilinogen,Urine Normal (Normal); WBC,Urine 50-100 per hpf (0-3)
[2020-05-30] MEDS: *HR* Heparin 5,000 UNIT/ML VIAL SQ SCH ×2 (06:04→13:45)
[2020-05-30] MEDS ORDERED: Furosemide 40 MG/4 ML VIAL IVP ONE (07:46)
[2020-05-30] MEDS: Ipratropium 1 PUFF INHALER IH SCH ×5 (10:51→23:45)
[2020-05-30] MEDS ORDERED: *HR* Dextrose 50 % in Water (Vial) 50 ML VIAL IVP PRN ×2 (11:53→21:30)
[2020-05-30] MEDS ORDERED: D5% in Water 1,000 ML IVC PRN ×2 (11:53→21:30)
[2020-05-30] MEDS ORDERED: Dextrose Gel 15 GM/37.5 ML TUBE PO PRN ×4 (11:53→21:30)
[2020-05-30] MEDS: Dexamethasone Sodium Phos/PF 10 MG/ML VIAL IVP SCH (13:45)
[2020-05-30] MEDS: Insulin LISPRO 300 UNITS/3 ML VIAL SUBQ SCH ×2 (15:21→22:02)
[2020-05-30] MEDS: Insulin DETEMIR 100 UNIT/ML X5UNITS SUBQ SCH (20:15)
[2020-05-30] MEDS: *HR* Enoxaparin 40 MG/0.4 ML SYRINGE SQ SCH (20:15)
[2020-05-30] MEDS: Loratadine 10 MG TABLET PO SCH (20:16)
[2020-05-30] MEDS: Gabapentin 400 MG CAPSULE PO SCH (20:16)
[2020-05-31] MEDS: tiZANidine 4 MG TABLET PO PRN ×3 (00:10→22:51)
[2020-05-31] MEDS: Ipratropium 1 PUFF INHALER IH SCH ×6 (03:56→23:17)
[2020-05-31 06:34] LABS: Hematocrit 38.4 % (35.3-44.9); Hemoglobin 12.2 g/dL (11.5-15.4); Immature Granulocytes % 0.5 % (0-4); Lymphocytes # 0.4 K/mcL (0.6-4.6); Lymphocytes % 5.4 %; Mean Corpuscular HGB Conc 31.8 g/dL (31.6-35.5); Mean Corpuscular Hemoglobin 28.9 pg (28.0-33.3); Mean Platelet Volume 9.8 fL (9.4-12.4); Monocytes # 0.3 K/mcL (0.0-1.3); Monocytes % 3.4 %; Neutrophils # 7.3 K/mcL (1.6-8.9); Platelet Count 223 K/mcL (140-400); Red Blood Count 4.22 M/mcL (3.82-4.97); Red Cell Distribution Width 15.4 % (11.5-14.5); Segmented Neutrophils % 90.7 %
[2020-05-31 06:45] LABS: D-Dimer 343 ng/mLFEU (0-500)
[2020-05-31 06:47] LABS: Fibrinogen 822 mg/dL (169-393)
[2020-05-31 07:34] LABS: % Iron Saturation 10 % (15-50); Alanine Aminotransferase 7 Units/L (7-52); Albumin 3.6 g/dL (3.5-5.7); Albumin/Globulin Ratio 0.9 (1.1-2.2); Alkaline Phosphatase 57 Units/L (34-104); Aspartate Amino Transferase 16 Units/L (13-39); BUN/Creatinine Ratio 22 (6-26); Bilirubin,Direct 0.1 mg/dL (0.0-0.2); Bilirubin,Indirect 0.2 mg/dL (0.0-1.0); Bilirubin,Total 0.3 mg/dL (0.3-1.0); Blood Urea Nitrogen 24 mg/dL (6-20); Calcium 8.4 mg/dL (8.6-10.3); Carbon Dioxide 21 mEq/L (23-29); Chloride 102 mEq/L (98-107); Ferritin 131 ng/mL (10-120); Glucose 285 mg/dL (70-105); Iron 36 mcg/dL (50-170); Magnesium 1.3 mg/dL (1.6-2.6); Osmolality,Calculated 300 (280-300); Potassium 3.9 mEq/L (3.5-5.1); Sodium 138 mEq/L (136-145); Thyroid Stimulating Hormone 0.558 mcIU/mL (0.340-5.600); Total Protein 7.6 g/dL (6.4-8.9); Transferrin 262 mg/dL (203-362); eGFR For African Americans > 60 (> 60); eGFR For Non-African Americans 53 (> 60)
[2020-05-31] MEDS: Cyanocobalamin (B-12) 1,000 MCG TABLET PO SCH (07:50)
[2020-05-31] MEDS: Isosorbide MONOnitrate (24 HR) 30 MG TAB.ER.24H PO SCH (07:50)
[2020-05-31] MEDS: amLODIPine 5 MG TABLET PO SCH (07:50)
[2020-05-31] MEDS: *HR* Enoxaparin 40 MG/0.4 ML SYRINGE SQ SCH ×2 (07:51→19:22)
[2020-05-31] MEDS: Gabapentin 400 MG CAPSULE PO SCH ×2 (07:51→19:22)
[2020-05-31] MEDS: Dexamethasone Sodium Phos/PF 10 MG/ML VIAL IVP SCH (07:51)
[2020-05-31] MEDS: Insulin LISPRO 300 UNITS/3 ML VIAL SUBQ SCH ×4 (07:52→19:41)
[2020-05-31] MEDS: Acetaminophen 325 MG TABLET PO PRN (09:21)
[2020-05-31] MEDS: Benzonatate 100 MG CAPSULE PO PRN ×2 (09:21→14:27)
[2020-05-31 10:14] LABS: Estimated Average Glucose 194 mg/dl; Hemoglobin A1C 8.4 %
[2020-05-31 10:35] LABS: Folate 14.3 ng/mL (3.0-16.0)
[2020-05-31] MEDS: Azithromycin 500 MG in 0.9 % Sodium Chloride 250 ML IVPB SCH (11:39)
[2020-05-31] MEDS ORDERED: Remdesivir 200 MG in 0.9 % Sodium Chloride 100 ML IVPB ONE (13:00)
[2020-05-31] MEDS ORDERED: Insulin LISPRO 300 UNITS/3 ML VIAL SUBQ SCH (17:00)
[2020-05-31] MEDS ORDERED: *HR* LORazepam 2 MG/ML VIAL IVP PRN (19:21)
[2020-05-31] MEDS: Loratadine 10 MG TABLET PO SCH (19:22)
[2020-05-31] MEDS: Insulin DETEMIR 100 UNIT/ML X5UNITS SUBQ SCH (19:41)
[2020-05-31] MEDS ORDERED: GuaiFENesin/Dextromethorphan TABLET PO PRN (21:08)
[2020-05-31] MEDS ORDERED: 0.9 % Sodium Chloride 250 ML ONE (21:43)
[2020-06-01] MEDS ORDERED: Furosemide 40 MG/4 ML VIAL IVP ONE ×2 (01:46→08:43)
[2020-06-01 03:08] LABS: INR 1.1; Prothrombin Time 13.1 Seconds (9.4-12.1)
[2020-06-01 03:26] LABS: Albumin 3.5 g/dL (3.5-5.7); Bilirubin,Direct 0.1 mg/dL (0.0-0.2); Bilirubin,Indirect 0.2 mg/dL (0.0-1.0); Bilirubin,Total 0.3 mg/dL (0.3-1.0); Globulin 3.6 g/dL (2.4-3.5); Total Protein 7.1 g/dL (6.4-8.9)
[2020-06-01] MEDS: Ipratropium 1 PUFF INHALER IH SCH ×6 (04:02→23:33)
[2020-06-01 05:38] LABS: ABG Base Excess 0 mEq/L (-2 to 3); ABG HCO3 24 mEq/L (21-27); ABG Oxygen Saturation 84 % (95-98); ABG PCO2 34 mmHg (35-45); ABG PH 7.44 pH Units (7.32-7.45); ABG PO2 47 mmHg (85-104); ABG TCO2 25 mEq/L (20-26); Blood Gas VT 450 cc
[2020-06-01] MEDS: Gabapentin 400 MG CAPSULE PO SCH (07:55)
[2020-06-01] MEDS: Isosorbide MONOnitrate (24 HR) 30 MG TAB.ER.24H PO SCH (07:55)
[2020-06-01] MEDS: Cyanocobalamin (B-12) 1,000 MCG TABLET PO SCH ×2 (07:56→10:22)
[2020-06-01] MEDS: amLODIPine 5 MG TABLET PO SCH (07:56)
[2020-06-01] MEDS: *HR* Enoxaparin 40 MG/0.4 ML SYRINGE SQ SCH (08:05)
[2020-06-01] MEDS: Dexamethasone Sodium Phos/PF 10 MG/ML VIAL IVP SCH (08:05)
[2020-06-01] MEDS: Insulin LISPRO 300 UNITS/3 ML VIAL SUBQ SCH ×4 (08:39→20:35)
[2020-06-01] MEDS ORDERED: Furosemide 40 MG/4 ML VIAL ONE (08:41)
[2020-06-01 09:11] LABS: Hematocrit 34.8 % (35.3-44.9); Hemoglobin 10.9 g/dL (11.5-15.4); Lymphocytes # 0.7 K/mcL (0.6-4.6); Lymphocytes % 8.9 %; Mean Corpuscular HGB Conc 31.3 g/dL (31.6-35.5); Mean Corpuscular Hemoglobin 28.2 pg (28.0-33.3); Mean Corpuscular Volume 89.9 fL (83.0-100.0); Mean Platelet Volume 9.6 fL (9.4-12.4); Monocytes # 0.3 K/mcL (0.0-1.3); Monocytes % 3.2 %; Neutrophils # 6.8 K/mcL (1.6-8.9); Platelet Count 232 K/mcL (140-400); Red Blood Count 3.87 M/mcL (3.82-4.97); Red Cell Distribution Width 15.4 % (11.5-14.5); Segmented Neutrophils % 86.9 %; White Blood Count 7.8 K/mcL (4.3-11.1)
[2020-06-01 09:30] LABS: Calcium 8.1 mg/dL (8.6-10.3); Potassium 3.3 mEq/L (3.5-5.1)
[2020-06-01] MEDS: Dexmedetomidine HCl 400 MCG/100 ML MLS IVC SCH (09:51)
[2020-06-01] MEDS: cefTRIAXone 2,000 MG in Water for inj. (sterile) 20 ML IVP SCH (09:59)
[2020-06-01] MEDS: Acetaminophen 325 MG TABLET PO PRN (10:15)
[2020-06-01] MEDS ORDERED: Potassium Chloride Elixir 20 MEQ/15 ML UDC PO ONE ×2 (10:25→17:15)
[2020-06-01 10:43] LABS: BUN/Creatinine Ratio 29 (6-26); Blood Urea Nitrogen 38 mg/dL (6-20); Calcium 8.4 mg/dL (8.6-10.3); Carbon Dioxide 24 mEq/L (23-29); Chloride 98 mEq/L (98-107); Glucose 105 mg/dL (70-105); Osmolality,Calculated 291 (280-300); Potassium 3.3 mEq/L (3.5-5.1); Sodium 136 mEq/L (136-145); eGFR For African Americans 51 (> 60); eGFR For Non-African Americans 42 (> 60)
[2020-06-01 10:44] LABS: Troponin I < 0.03 ng/mL (< 0.04)
[2020-06-01] MEDS: Budesonide/Formoterol 160/4.5 1 PUFF INH IH SCH ×2 (11:18→19:51)
[2020-06-01] MEDS ORDERED: *HR* Succinylcholine 200 MG/10 ML VIAL IVP ONE (11:18)
[2020-06-01] MEDS ORDERED: Heparin 1,000 UNITS/500 mL 500 ML ONE (11:26)
[2020-06-01] MEDS ORDERED: *HR* Propofol 200 MG/20 ML VIAL IVP ONE (11:36)
[2020-06-01] MEDS ORDERED: *HR* Rocuronium Bromide 50 MG/5 ML VIAL IVP ONE (11:36)
[2020-06-01] MEDS ORDERED: *HR* Midazolam HCl 5 MG/5 ML VIAL IVP ONE ×3 (11:36→12:46)
[2020-06-01] MEDS ORDERED: 0.9 % Sodium Chloride 1,000 ML ONE (11:50)
[2020-06-01] MEDS: FentaNYL (PF) 1,000 MCG/100 ML IV.SOLN IVC SCH ×3 (12:10→20:41)
[2020-06-01] MEDS ORDERED: Cisatracurium 200 MG in 0.9 % Sodium Chloride 180 ML IVC SCH (12:45)
[2020-06-01] MEDS: Cisatracurium 200 MG in 0.9 % Sodium Chloride 180 ML IVC SCH ×2 (13:10→22:33)
[2020-06-01] MEDS: Azithromycin 500 MG in 0.9 % Sodium Chloride 250 ML IVPB SCH (13:16)
[2020-06-01 13:32] LABS: ABG Base Excess 3 mEq/L (-2 to 3); ABG HCO3 28 mEq/L (21-27); ABG Oxygen Saturation 100 % (95-98); ABG PCO2 44 mmHg (35-45); ABG PH 7.41 pH Units (7.32-7.45); ABG PO2 219 mmHg (85-104); ABG TCO2 29 mEq/L (20-26); Blood Gas Modality ASSIST CONTROL; Blood Gas VT 380 cc
[2020-06-01] MEDS: Remdesivir 100 MG in 0.9 % Sodium Chloride 100 ML IVPB SCH (15:06)
[2020-06-01] MEDS ORDERED: Artificial Tears SOLN 15 ML BOTTLE BOTH EYES PRN (15:22)
[2020-06-01] MEDS: *HR* Heparin 5,000 UNIT/ML VIAL SQ SCH ×2 (17:21→21:59)
[2020-06-01] MEDS: Artificial Tears SOLN 15 ML BOTTLE BOTH EYES SCH ×3 (17:22→23:43)
[2020-06-01] MEDS: Norepinephrine 4 MG/254 ML IV.SOLN IVC SCH (20:09)
[2020-06-01] MEDS: Chlorhexidine Rinse 15 ML MOUTHWASH MM SCH (20:09)
[2020-06-01] MEDS: Loratadine 10 MG TABLET PO SCH (20:10)
[2020-06-01] MEDS: Insulin DETEMIR 100 UNIT/ML X5UNITS SUBQ SCH (20:41)
[2020-06-02] MEDS: Insulin LISPRO 300 UNITS/3 ML VIAL SUBQ SCH ×7 (00:05→23:50)
[2020-06-02] MEDS: FentaNYL (PF) 2,500 MCG/50 ML IV.SOLN IVC SCH ×3 (02:29→20:45)
[2020-06-02] MEDS: Dexmedetomidine HCl 400 MCG/100 ML MLS IVC SCH ×3 (03:12→23:08)
[2020-06-02] MEDS: Ipratropium 1 PUFF INHALER IH SCH ×6 (04:01→23:48)
[2020-06-02 04:07] LABS: Basophils % 0.2 %; Hemoglobin 10.1 g/dL (11.5-15.4); Immature Granulocytes % 0.7 % (0-4); Lymphocytes # 0.5 K/mcL (0.6-4.6); Lymphocytes % 9.5 %; Mean Corpuscular HGB Conc 31.6 g/dL (31.6-35.5); Mean Corpuscular Hemoglobin 28.8 pg (28.0-33.3); Mean Corpuscular Volume 91.2 fL (83.0-100.0); Mean Platelet Volume 9.6 fL (9.4-12.4); Monocytes # 0.3 K/mcL (0.0-1.3); Monocytes % 5.2 %; Neutrophils # 4.5 K/mcL (1.6-8.9); Platelet Count 232 K/mcL (140-400); Red Blood Count 3.51 M/mcL (3.82-4.97); Red Cell Distribution Width 15.7 % (11.5-14.5); Segmented Neutrophils % 84.4 %; White Blood Count 5.4 K/mcL (4.3-11.1)
[2020-06-02 04:08] LABS: ABG Base Excess 3 mEq/L (-2 to 3); ABG HCO3 30 mEq/L (21-27); ABG Oxygen Saturation 97 % (95-98); ABG PCO2 57 mmHg (35-45); ABG PH 7.32 pH Units (7.32-7.45); ABG PO2 96 mmHg (85-104); ABG TCO2 31 mEq/L (20-26); Blood Gas Modality ASSIST CONTROL; Blood Gas VT 380 cc
[2020-06-02] MEDS: Artificial Tears SOLN 15 ML BOTTLE BOTH EYES SCH ×6 (04:09→23:41)
[2020-06-02 04:19] LABS: INR 1.2; Prothrombin Time 13.5 Seconds (9.4-12.1)
[2020-06-02 04:28] LABS: Alanine Aminotransferase 8 Units/L (7-52); Albumin 3.1 g/dL (3.5-5.7); Albumin/Globulin Ratio 0.9 (1.1-2.2); Alkaline Phosphatase 54 Units/L (34-104); Aspartate Amino Transferase 18 Units/L (13-39); BUN/Creatinine Ratio 42 (6-26); Bilirubin,Total 0.2 mg/dL (0.3-1.0); Blood Urea Nitrogen 45 mg/dL (6-20); Calcium 7.6 mg/dL (8.6-10.3); Carbon Dioxide 27 mEq/L (23-29); Chloride 100 mEq/L (98-107); Globulin 3.5 g/dL (2.4-3.5); Glucose 245 mg/dL (70-105); Osmolality,Calculated 308 (280-300); Sodium 139 mEq/L (136-145); Total Protein 6.6 g/dL (6.4-8.9); eGFR For African Americans > 60 (> 60); eGFR For Non-African Americans 54 (> 60)
[2020-06-02] MEDS: *HR* Heparin 5,000 UNIT/ML VIAL SQ SCH ×3 (05:36→22:18)
[2020-06-02] MEDS: Cisatracurium 200 MG in 0.9 % Sodium Chloride 180 ML IVC SCH ×2 (07:02→17:20)
[2020-06-02] MEDS: Budesonide/Formoterol 160/4.5 1 PUFF INH IH SCH ×2 (07:35→20:03)
[2020-06-02] MEDS: Pantoprazole 40 MG VIAL IVP SCH (08:58)
[2020-06-02] MEDS: Chlorhexidine Rinse 15 ML MOUTHWASH MM SCH ×2 (08:58→19:51)
[2020-06-02] MEDS: Insulin DETEMIR 100 UNIT/ML X5UNITS SUBQ SCH ×2 (08:59→19:53)
[2020-06-02] MEDS: Dexamethasone Sodium Phos/PF 10 MG/ML VIAL IVP SCH (08:59)
[2020-06-02] MEDS: Cyanocobalamin (B-12) 1,000 MCG TABLET PO SCH (08:59)
[2020-06-02] MEDS: cefTRIAXone 2,000 MG in Water for inj. (sterile) 20 ML IVP SCH (09:00)
[2020-06-02] MEDS: Azithromycin 500 MG in 0.9 % Sodium Chloride 250 ML IVPB SCH (11:45)
[2020-06-02] MEDS: Docusate Oral Soln 100 MG/10 ML UDC GTUBE SCH ×2 (11:45→19:51)
[2020-06-02] MEDS: Norepinephrine 4 MG/254 ML IV.SOLN IVC SCH (11:55)
[2020-06-02] MEDS ORDERED: Vancomycin 2,000 MG/520 ML IV.SOLN IVPB ONE (12:00)
[2020-06-02] MEDS: Remdesivir 100 MG in 0.9 % Sodium Chloride 100 ML IVPB SCH (13:04)
[2020-06-02] MEDS: Loratadine 10 MG TABLET PO SCH (19:51)
[2020-06-03] MEDS: *HR* Midazolam HCl 2 MG/2 ML VIAL IVP PRN ×3 (01:58→22:09)
[2020-06-03] MEDS: Cisatracurium 200 MG in 0.9 % Sodium Chloride 180 ML IVC SCH ×3 (02:38→21:55)
[2020-06-03] MEDS: Dexmedetomidine HCl 400 MCG/100 ML MLS IVC SCH ×5 (03:50→22:09)
[2020-06-03 03:53] LABS: Basophils % 0.3 %; Hematocrit 34.8 % (35.3-44.9); Hemoglobin 10.9 g/dL (11.5-15.4); Immature Granulocytes % 3.4 % (0-4); Lymphocytes # 0.5 K/mcL (0.6-4.6); Mean Corpuscular HGB Conc 31.3 g/dL (31.6-35.5); Mean Corpuscular Hemoglobin 29.6 pg (28.0-33.3); Mean Corpuscular Volume 94.6 fL (83.0-100.0); Mean Platelet Volume 9.8 fL (9.4-12.4); Monocytes # 0.2 K/mcL (0.0-1.3); Monocytes % 2.6 %; Neutrophils # 6.8 K/mcL (1.6-8.9); Platelet Count 273 K/mcL (140-400); Red Blood Count 3.68 M/mcL (3.82-4.97); Red Cell Distribution Width 14.7 % (11.5-14.5); Segmented Neutrophils % 87.7 %; White Blood Count 7.7 K/mcL (4.3-11.1)
[2020-06-03] MEDS: Artificial Tears SOLN 15 ML BOTTLE BOTH EYES SCH ×5 (03:55→19:57)
[2020-06-03] MEDS: Insulin LISPRO 300 UNITS/3 ML VIAL SUBQ SCH ×5 (03:56→20:35)
[2020-06-03 03:57] LABS: Fibrinogen 615 mg/dL (169-393); INR 1.1
[2020-06-03 03:58] LABS: D-Dimer 1411 ng/mLFEU (0-500)
[2020-06-03] MEDS: Ipratropium 1 PUFF INHALER IH SCH ×6 (04:13→23:47)
[2020-06-03 04:17] LABS: Alanine Aminotransferase 8 Units/L (7-52); Albumin/Globulin Ratio 0.9 (1.1-2.2); Alkaline Phosphatase 59 Units/L (34-104); Aspartate Amino Transferase 17 Units/L (13-39); BUN/Creatinine Ratio 46 (6-26); Bilirubin,Total 0.3 mg/dL (0.3-1.0); Blood Urea Nitrogen 37 mg/dL (6-20); Calcium 7.9 mg/dL (8.6-10.3); Carbon Dioxide 25 mEq/L (23-29); Chloride 102 mEq/L (98-107); Globulin 3.5 g/dL (2.4-3.5); Glucose 370 mg/dL (70-105); Osmolality,Calculated 310 (280-300); Potassium 3.8 mEq/L (3.5-5.1); Sodium 138 mEq/L (136-145); Total Protein 6.5 g/dL (6.4-8.9); eGFR For African Americans > 60 (> 60); eGFR For Non-African Americans > 60 (> 60)
[2020-06-03] MEDS: *HR* Heparin 5,000 UNIT/ML VIAL SQ SCH ×3 (05:49→21:58)
[2020-06-03] MEDS: Budesonide/Formoterol 160/4.5 1 PUFF INH IH SCH ×2 (07:35→19:50)
[2020-06-03] MEDS: FentaNYL (PF) 2,500 MCG/50 ML IV.SOLN IVC SCH ×2 (08:22→19:57)
[2020-06-03] MEDS: Furosemide 40 MG/4 ML VIAL IVP SCH (08:25)
[2020-06-03] MEDS: Chlorhexidine Rinse 15 ML MOUTHWASH MM SCH ×2 (08:25→20:00)
[2020-06-03] MEDS: Docusate Oral Soln 100 MG/10 ML UDC GTUBE SCH ×2 (08:25→20:00)
[2020-06-03] MEDS: Dexamethasone Sodium Phos/PF 10 MG/ML VIAL IVP SCH (08:25)
[2020-06-03] MEDS: cefTRIAXone 2,000 MG in Water for inj. (sterile) 20 ML IVP SCH (08:26)
[2020-06-03] MEDS: Cyanocobalamin (B-12) 1,000 MCG TABLET PO SCH (08:26)
[2020-06-03] MEDS: Pantoprazole 40 MG VIAL IVP SCH (08:26)
[2020-06-03] MEDS: Insulin DETEMIR 100 UNIT/ML X5UNITS SUBQ SCH ×2 (09:24→20:01)
[2020-06-03] MEDS: Azithromycin 500 MG in 0.9 % Sodium Chloride 250 ML IVPB SCH (12:30)
[2020-06-03] MEDS: Remdesivir 100 MG in 0.9 % Sodium Chloride 100 ML IVPB SCH (12:59)
[2020-06-03] MEDS: Norepinephrine 4 MG/254 ML IV.SOLN IVC SCH (19:28)
[2020-06-03] MEDS: Loratadine 10 MG TABLET PO SCH (20:00)
[2020-06-04] MEDS: Artificial Tears SOLN 15 ML BOTTLE BOTH EYES SCH ×6 (00:01→19:52)
[2020-06-04] MEDS: Insulin LISPRO 300 UNITS/3 ML VIAL SUBQ SCH ×7 (00:02→19:55)
[2020-06-04] MEDS: Dexmedetomidine HCl 400 MCG/100 ML MLS IVC SCH ×5 (03:09→18:54)
[2020-06-04] MEDS: Ipratropium 1 PUFF INHALER IH SCH ×6 (03:33→23:48)
[2020-06-04 04:27] LABS: ABG Base Excess 2 mEq/L (-2 to 3); ABG HCO3 29 mEq/L (21-27); ABG Oxygen Saturation 93 % (95-98); ABG PCO2 58 mmHg (35-45); ABG PH 7.31 pH Units (7.32-7.45); ABG PO2 74 mmHg (85-104); ABG TCO2 31 mEq/L (20-26); Blood Gas Modality ASSIST CONTROL; Blood Gas VT 380 cc
[2020-06-04 05:01] LABS: INR 1.1; Prothrombin Time 12.7 Seconds (9.4-12.1)
[2020-06-04 05:09] LABS: Basophils % 0.5 %; Hematocrit 34.6 % (35.3-44.9); Hemoglobin 10.6 g/dL (11.5-15.4); Immature Granulocytes % 4.9 % (0-4); Lymphocytes # 0.6 K/mcL (0.6-4.6); Lymphocytes % 10.7 %; Mean Corpuscular HGB Conc 30.6 g/dL (31.6-35.5); Mean Corpuscular Volume 94.8 fL (83.0-100.0); Monocytes # 0.4 K/mcL (0.0-1.3); Monocytes % 7.4 %; Neutrophils # 4.6 K/mcL (1.6-8.9); Nucleated Red Blood Cells 0.3 /100 WBC (0); Platelet Count 297 K/mcL (140-400); Red Blood Count 3.65 M/mcL (3.82-4.97); Red Cell Distribution Width 14.8 % (11.5-14.5); Segmented Neutrophils % 76.5 %
[2020-06-04 05:15] LABS: Alanine Aminotransferase 7 Units/L (7-52); Albumin 2.9 g/dL (3.5-5.7); Albumin/Globulin Ratio 0.9 (1.1-2.2); Alkaline Phosphatase 52 Units/L (34-104); Aspartate Amino Transferase 9 Units/L (13-39); BUN/Creatinine Ratio 45 (6-26); Bilirubin,Total 0.2 mg/dL (0.3-1.0); Blood Urea Nitrogen 40 mg/dL (6-20); Calcium 8.1 mg/dL (8.6-10.3); Carbon Dioxide 27 mEq/L (23-29); Chloride 103 mEq/L (98-107); Globulin 3.3 g/dL (2.4-3.5); Glucose 323 mg/dL (70-105); Osmolality,Calculated 312 (280-300); Potassium 3.9 mEq/L (3.5-5.1); Sodium 140 mEq/L (136-145); Total Protein 6.2 g/dL (6.4-8.9); eGFR For African Americans > 60 (> 60); eGFR For Non-African Americans > 60 (> 60)
[2020-06-04] MEDS: *HR* Heparin 5,000 UNIT/ML VIAL SQ SCH ×3 (05:41→22:27)
[2020-06-04] MEDS: Cisatracurium 200 MG in 0.9 % Sodium Chloride 180 ML IVC SCH ×2 (07:30→16:19)
[2020-06-04] MEDS: Budesonide/Formoterol 160/4.5 1 PUFF INH IH SCH ×2 (08:08→19:58)
[2020-06-04] MEDS ORDERED: 0.9 % Sodium Chloride 250 ML ONE (08:47)
[2020-06-04] MEDS: Cyanocobalamin (B-12) 1,000 MCG TABLET PO SCH (08:55)
[2020-06-04] MEDS: Docusate Oral Soln 100 MG/10 ML UDC GTUBE SCH ×2 (08:55→19:54)
[2020-06-04] MEDS: Dexamethasone Sodium Phos/PF 10 MG/ML VIAL IVP SCH (08:55)
[2020-06-04] MEDS: Furosemide 40 MG/4 ML VIAL IVP SCH (08:56)
[2020-06-04] MEDS: Chlorhexidine Rinse 15 ML MOUTHWASH MM SCH ×2 (08:56→19:54)
[2020-06-04] MEDS: Pantoprazole 40 MG VIAL IVP SCH (08:56)
[2020-06-04] MEDS: cefTRIAXone 2,000 MG in Water for inj. (sterile) 20 ML IVP SCH (08:57)
[2020-06-04] MEDS: Insulin DETEMIR 100 UNIT/ML X5UNITS SUBQ SCH ×2 (09:12→19:55)
[2020-06-04] MEDS: Norepinephrine 4 MG/254 ML IV.SOLN IVC SCH (09:16)
[2020-06-04] MEDS: FentaNYL (PF) 2,500 MCG/50 ML IV.SOLN IVC SCH ×2 (09:19→17:14)
[2020-06-04] MEDS: Isosorbide MONOnitrate (24 HR) 30 MG TAB.ER.24H PO SCH (09:21)
[2020-06-04] MEDS: *HR* Midazolam HCl 2 MG/2 ML VIAL IVP PRN ×4 (10:51→22:27)
[2020-06-04] MEDS: Azithromycin 500 MG in 0.9 % Sodium Chloride 250 ML IVPB SCH (11:13)
[2020-06-04] MEDS: Remdesivir 100 MG in 0.9 % Sodium Chloride 100 ML IVPB SCH (13:01)
[2020-06-04] MEDS: Loratadine 10 MG TABLET PO SCH (19:54)
[2020-06-05] MEDS: Dexmedetomidine HCl 400 MCG/100 ML MLS IVC SCH ×6 (00:17→22:30)
[2020-06-05] MEDS: Cisatracurium 200 MG in 0.9 % Sodium Chloride 180 ML IVC SCH ×2 (02:01→11:17)
[2020-06-05] MEDS: Artificial Tears SOLN 15 ML BOTTLE BOTH EYES SCH ×6 (04:00→20:58)
[2020-06-05] MEDS: Insulin LISPRO 300 UNITS/3 ML VIAL SUBQ SCH ×6 (04:00→20:59)
[2020-06-05] MEDS: FentaNYL (PF) 2,500 MCG/50 ML IV.SOLN IVC SCH ×2 (04:40→16:38)
[2020-06-05] MEDS: Ipratropium 1 PUFF INHALER IH SCH ×5 (04:54→19:42)
[2020-06-05 04:59] LABS: INR 1.2; Prothrombin Time 13.3 Seconds (9.4-12.1)
[2020-06-05 05:10] LABS: Alanine Aminotransferase 6 Units/L (7-52); Albumin 2.8 g/dL (3.5-5.7); Albumin/Globulin Ratio 0.8 (1.1-2.2); Alkaline Phosphatase 47 Units/L (34-104); Aspartate Amino Transferase 7 Units/L (13-39); BUN/Creatinine Ratio 58 (6-26); Bilirubin,Total 0.2 mg/dL (0.3-1.0); Blood Urea Nitrogen 49 mg/dL (6-20); Calcium 8.6 mg/dL (8.6-10.3); Carbon Dioxide 30 mEq/L (23-29); Chloride 103 mEq/L (98-107); Globulin 3.4 g/dL (2.4-3.5); Glucose 250 mg/dL (70-105); Osmolality,Calculated 311 (280-300); Potassium 3.7 mEq/L (3.5-5.1); Sodium 140 mEq/L (136-145); Total Protein 6.2 g/dL (6.4-8.9); eGFR For African Americans > 60 (> 60); eGFR For Non-African Americans > 60 (> 60)
[2020-06-05 05:23] LABS: ABG Base Excess 3 mEq/L (-2 to 3); ABG HCO3 31 mEq/L (21-27); ABG Oxygen Saturation 91 % (95-98); ABG PCO2 58 mmHg (35-45); ABG PH 7.33 pH Units (7.32-7.45); ABG PO2 66 mmHg (85-104); ABG TCO2 32 mEq/L (20-26); Blood Gas VT 380 cc
[2020-06-05] MEDS: *HR* Heparin 5,000 UNIT/ML VIAL SQ SCH ×3 (05:28→20:59)
[2020-06-05 06:09] LABS: Basophils % 0.4 %; Hemoglobin 10.4 g/dL (11.5-15.4); Immature Granulocytes % 5.1 % (0-4); Lymphocytes # 0.9 K/mcL (0.6-4.6); Lymphocytes % 12.8 %; Mean Corpuscular HGB Conc 30.6 g/dL (31.6-35.5); Mean Corpuscular Hemoglobin 29.3 pg (28.0-33.3); Mean Corpuscular Volume 95.8 fL (83.0-100.0); Monocytes # 0.5 K/mcL (0.0-1.3); Monocytes % 7.1 %; Neutrophils # 5.3 K/mcL (1.6-8.9); Nucleated Red Blood Cells 0.6 /100 WBC (0); Platelet Count 317 K/mcL (140-400); Red Blood Count 3.55 M/mcL (3.82-4.97); Red Cell Distribution Width 15.1 % (11.5-14.5); Segmented Neutrophils % 74.6 %; White Blood Count 7.1 K/mcL (4.3-11.1)
[2020-06-05 06:27] LABS: Anisocytosis 1+ (Not Present); Platelet Estimate Normal (Normal)
[2020-06-05] MEDS: Budesonide/Formoterol 160/4.5 1 PUFF INH IH SCH ×2 (07:43→19:43)
[2020-06-05] MEDS: Chlorhexidine Rinse 15 ML MOUTHWASH MM SCH ×2 (08:13→20:50)
[2020-06-05] MEDS: Pantoprazole 40 MG VIAL IVP SCH (08:13)
[2020-06-05] MEDS: Cyanocobalamin (B-12) 1,000 MCG TABLET PO SCH (08:13)
[2020-06-05] MEDS: Dexamethasone Sodium Phos/PF 10 MG/ML VIAL IVP SCH (08:13)
[2020-06-05] MEDS: Furosemide 40 MG/4 ML VIAL IVP SCH (08:13)
[2020-06-05] MEDS: Docusate Oral Soln 100 MG/10 ML UDC GTUBE SCH ×2 (08:13→20:49)
[2020-06-05] MEDS: Insulin DETEMIR 100 UNIT/ML X5UNITS SUBQ SCH ×2 (08:13→20:50)
[2020-06-05] MEDS: cefTRIAXone 2,000 MG in Water for inj. (sterile) 20 ML IVP SCH (08:16)
[2020-06-05] MEDS ORDERED: Cholecalciferol (D-3) 1,000 UNIT (25MCG) TABLET PO SCH (09:00)
[2020-06-05] MEDS ORDERED: Ergocalciferol (VIT D2) 50,000 UNIT (1.25MG) CAP PO SCH (09:00)
[2020-06-05] MEDS: Norepinephrine 4 MG/254 ML IV.SOLN IVC SCH (10:48)
[2020-06-05] MEDS: Cholecalciferol (D-3) 1,000 UNIT (25MCG) TABLET PO SCH (10:53)
[2020-06-05] MEDS ORDERED: 0.9 % Sodium Chloride 500 ML ONE (11:16)
[2020-06-05] MEDS: Azithromycin 500 MG in 0.9 % Sodium Chloride 250 ML IVPB SCH (11:17)
[2020-06-05 18:48] LABS: Bilirubin,Urine Negative (Negative); Blood,Urine Small (Negative); Budding Yeast,Urine Many per hpf (None Seen); Clarity,Urine Ex.Turbid (Clear); Color,Urine Yellow (Yellow); Glucose,Urine (UA) Normal (Normal); Ketones,Urine Negative (Negative); Leukocyte Esterase,Urine Large (Negative); Nitrite,Urine Negative (Negative); PH,Urine 6.5 pH Units (5.0-8.0); Protein,Urine Trace mg/dL (Neg-Trace); RBC,Urine TNTC per hpf (0-3); Squamous Epithelial Cell,Urine Few per hpf (None-Few); Urobilinogen,Urine Normal (Normal); WBC,Urine 50-100 per hpf (0-3)
[2020-06-05] MEDS: Loratadine 10 MG TABLET PO SCH (20:49)
[2020-06-06] MEDS: Ipratropium 1 PUFF INHALER IH SCH ×7 (00:08→23:05)
[2020-06-06] MEDS: Artificial Tears SOLN 15 ML BOTTLE BOTH EYES SCH ×6 (01:11→20:24)
[2020-06-06] MEDS: Insulin LISPRO 300 UNITS/3 ML VIAL SUBQ SCH ×6 (01:11→20:24)
[2020-06-06] MEDS: Dexmedetomidine HCl 400 MCG/100 ML MLS IVC SCH ×6 (03:03→21:19)
[2020-06-06 04:10] LABS: ABG Base Excess 3 mEq/L (-2 to 3); ABG HCO3 29 mEq/L (21-27); ABG Oxygen Saturation 87 % (95-98); ABG PCO2 51 mmHg (35-45); ABG PH 7.37 pH Units (7.32-7.45); ABG PO2 56 mmHg (85-104); ABG TCO2 31 mEq/L (20-26); Blood Gas VT 380 cc
[2020-06-06 04:37] LABS: Basophils % 0.4 %; Eosinophils % 0.2 %; Hematocrit 34.6 % (35.3-44.9); Hemoglobin 10.6 g/dL (11.5-15.4); Immature Granulocytes % 4.4 % (0-4); Lymphocytes # 1.1 K/mcL (0.6-4.6); Lymphocytes % 12.5 %; Mean Corpuscular HGB Conc 30.6 g/dL (31.6-35.5); Mean Corpuscular Volume 94.8 fL (83.0-100.0); Mean Platelet Volume 9.8 fL (9.4-12.4); Monocytes # 0.4 K/mcL (0.0-1.3); Monocytes % 4.5 %; Neutrophils # 6.6 K/mcL (1.6-8.9); Nucleated Red Blood Cells 0.6 /100 WBC (0); Platelet Count 297 K/mcL (140-400); Red Blood Count 3.65 M/mcL (3.82-4.97); Red Cell Distribution Width 15.1 % (11.5-14.5); White Blood Count 8.5 K/mcL (4.3-11.1)
[2020-06-06 04:55] LABS: BUN/Creatinine Ratio 73 (6-26); Blood Urea Nitrogen 56 mg/dL (6-20); Calcium 9.2 mg/dL (8.6-10.3); Carbon Dioxide 30 mEq/L (23-29); Chloride 107 mEq/L (98-107); Glucose 145 mg/dL (70-105); Magnesium 1.4 mg/dL (1.6-2.6); Osmolality,Calculated 318 (280-300); Phosphorous 2.4 mg/dL (2.7-4.5); Potassium 3.2 mEq/L (3.5-5.1); Sodium 145 mEq/L (136-145); eGFR For African Americans > 60 (> 60); eGFR For Non-African Americans > 60 (> 60)
[2020-06-06] MEDS: FentaNYL (PF) 2,500 MCG/50 ML IV.SOLN IVC SCH ×2 (05:44→17:59)
[2020-06-06] MEDS: Budesonide/Formoterol 160/4.5 1 PUFF INH IH SCH ×2 (07:40→19:21)
[2020-06-06] MEDS: Chlorhexidine Rinse 15 ML MOUTHWASH MM SCH ×2 (07:56→20:25)
[2020-06-06] MEDS: Docusate Oral Soln 100 MG/10 ML UDC GTUBE SCH ×2 (07:56→20:25)
[2020-06-06] MEDS: Furosemide 40 MG/4 ML VIAL IVP SCH ×2 (07:56→20:26)
[2020-06-06] MEDS: Dexamethasone Sodium Phos/PF 10 MG/ML VIAL IVP SCH (07:56)
[2020-06-06] MEDS: Cholecalciferol (D-3) 1,000 UNIT (25MCG) TABLET PO SCH (07:56)
[2020-06-06] MEDS: Cyanocobalamin (B-12) 1,000 MCG TABLET PO SCH (07:56)
[2020-06-06] MEDS: Pantoprazole 40 MG VIAL IVP SCH (07:57)
[2020-06-06] MEDS: *HR* Heparin 5,000 UNIT/ML VIAL SQ SCH ×3 (07:58→22:03)
[2020-06-06] MEDS: Insulin DETEMIR 100 UNIT/ML X5UNITS SUBQ SCH ×2 (08:46→20:26)
[2020-06-06] MEDS: cefTRIAXone 2,000 MG in Water for inj. (sterile) 20 ML IVP SCH (10:56)
[2020-06-06] MEDS: Midazolam HCl 50 MG/100 ML IV.SOLN IVC SCH (12:06)
[2020-06-06] MEDS: Norepinephrine 4 MG/254 ML IV.SOLN IVC SCH (12:23)
[2020-06-06 16:32] LABS: D-Dimer 1583 ng/mLFEU (0-500)
[2020-06-06 16:45] LABS: Fibrinogen 822 mg/dL (169-393)
[2020-06-06 17:06] LABS: Alanine Aminotransferase 6 Units/L (7-52); Albumin 2.9 g/dL (3.5-5.7); Albumin/Globulin Ratio 0.7 (1.1-2.2); Alkaline Phosphatase 44 Units/L (34-104); Aspartate Amino Transferase 13 Units/L (13-39); Bilirubin,Direct 0.2 mg/dL (0.0-0.2); Bilirubin,Indirect 0.2 mg/dL (0.0-1.0); Bilirubin,Total 0.4 mg/dL (0.3-1.0); C-Reactive Protein 292 mg/L (Less than 10); Ferritin 118 ng/mL (10-120); Globulin 3.9 g/dL (2.4-3.5); Lactate Dehydrogenase 269 Units/L (140-271); Total Protein 6.8 g/dL (6.4-8.9); Troponin I < 0.03 ng/mL (< 0.04)
[2020-06-06] MEDS: Loratadine 10 MG TABLET PO SCH (20:26)
[2020-06-07] MEDS: Insulin LISPRO 300 UNITS/3 ML VIAL SUBQ SCH ×6 (00:16→20:11)
[2020-06-07] MEDS: Artificial Tears SOLN 15 ML BOTTLE BOTH EYES SCH ×7 (00:17→23:41)
[2020-06-07] MEDS: Dexmedetomidine HCl 400 MCG/100 ML MLS IVC SCH ×8 (00:17→22:22)
[2020-06-07] MEDS: Ipratropium 1 PUFF INHALER IH SCH ×5 (03:29→20:11)
[2020-06-07] MEDS: Norepinephrine 4 MG/254 ML IV.SOLN IVC SCH ×2 (03:37→21:49)
[2020-06-07 03:46] LABS: Basophils % 0.3 %; Eosinophils % 0.1 %; Hematocrit 36.8 % (35.3-44.9); Hemoglobin 11.2 g/dL (11.5-15.4); Immature Granulocytes % 2.1 % (0-4); Lymphocytes # 0.7 K/mcL (0.6-4.6); Lymphocytes % 5.8 %; Mean Corpuscular HGB Conc 30.4 g/dL (31.6-35.5); Mean Corpuscular Hemoglobin 29.3 pg (28.0-33.3); Mean Corpuscular Volume 96.3 fL (83.0-100.0); Mean Platelet Volume 9.9 fL (9.4-12.4); Monocytes # 0.4 K/mcL (0.0-1.3); Monocytes % 3.4 %; Neutrophils # 10.5 K/mcL (1.6-8.9); Nucleated Red Blood Cells 0.5 /100 WBC (0); Platelet Count 334 K/mcL (140-400); Red Blood Count 3.82 M/mcL (3.82-4.97); Red Cell Distribution Width 15.5 % (11.5-14.5); Segmented Neutrophils % 88.3 %; White Blood Count 11.9 K/mcL (4.3-11.1)
[2020-06-07 04:00] LABS: ABG Base Excess 2 mEq/L (-2 to 3); ABG HCO3 31 mEq/L (21-27); ABG Oxygen Saturation 92 % (95-98); ABG PCO2 79 mmHg (35-45); ABG PH 7.21 pH Units (7.32-7.45); ABG PO2 78 mmHg (85-104); ABG TCO2 34 mEq/L (20-26); Blood Gas Modality ASSIST CONTROL; Blood Gas VT 380 cc
[2020-06-07 04:03] LABS: BUN/Creatinine Ratio 64 (6-26); Blood Urea Nitrogen 67 mg/dL (6-20); Calcium 9.4 mg/dL (8.6-10.3); Carbon Dioxide 29 mEq/L (23-29); Chloride 105 mEq/L (98-107); Glucose 210 mg/dL (70-105); Magnesium 1.8 mg/dL (1.6-2.6); Osmolality,Calculated 322 (280-300); Phosphorous 5.5 mg/dL (2.7-4.5); Potassium 3.9 mEq/L (3.5-5.1); Sodium 143 mEq/L (136-145); eGFR For African Americans > 60 (> 60); eGFR For Non-African Americans 55 (> 60)
[2020-06-07] MEDS: *HR* Heparin 5,000 UNIT/ML VIAL SQ SCH ×3 (06:19→21:49)
[2020-06-07] MEDS: FentaNYL (PF) 2,500 MCG/50 ML IV.SOLN IVC SCH ×2 (06:29→18:53)
[2020-06-07] MEDS: Budesonide/Formoterol 160/4.5 1 PUFF INH IH SCH ×2 (07:28→20:11)
[2020-06-07] MEDS: Pantoprazole 40 MG VIAL IVP SCH (10:04)
[2020-06-07] MEDS: Chlorhexidine Rinse 15 ML MOUTHWASH MM SCH ×2 (10:08→20:11)
[2020-06-07] MEDS: Dexamethasone Sodium Phos/PF 10 MG/ML VIAL IVP SCH (10:08)
[2020-06-07] MEDS: Docusate Oral Soln 100 MG/10 ML UDC GTUBE SCH ×2 (10:08→20:12)
[2020-06-07] MEDS: Furosemide 40 MG/4 ML VIAL IVP SCH ×2 (10:09→20:12)
[2020-06-07] MEDS: Cholecalciferol (D-3) 1,000 UNIT (25MCG) TABLET PO SCH (10:09)
[2020-06-07] MEDS: Cyanocobalamin (B-12) 1,000 MCG TABLET PO SCH (10:10)
[2020-06-07] MEDS: Insulin DETEMIR 100 UNIT/ML X5UNITS SUBQ SCH ×2 (10:14→20:12)
[2020-06-07] MEDS ORDERED: Vancomycin (wt based) 1,000 MG VIAL IV SCH (11:00)
[2020-06-07] MEDS: Midazolam HCl 50 MG/100 ML IV.SOLN IVC SCH (11:10)
[2020-06-07] MEDS: Cisatracurium 200 MG in 0.9 % Sodium Chloride 180 ML IVC SCH (11:57)
[2020-06-07] MEDS: Vancomycin 2,000 MG/520 ML IV.SOLN IVPB SCH ×2 (11:58→23:40)
[2020-06-07 12:17] LABS: Bacteria,Urine Few per hpf (None-Few); Bilirubin,Urine Negative (Negative); Blood,Urine Small (Negative); Budding Yeast,Urine Many per hpf (None Seen); Clarity,Urine Ex.Turbid (Clear); Color,Urine Light-Yellow (Yellow); Glucose,Urine (UA) Normal (Normal); Ketones,Urine Negative (Negative); Leukocyte Esterase,Urine Large (Negative); Nitrite,Urine Negative (Negative); Protein,Urine Negative (Neg-Trace); RBC,Urine TNTC per hpf (0-3); Renal Epithelial Cells,Urine Few per hpf (None-Few); Squamous Epithelial Cell,Urine Few per hpf (None-Few); Transitional Epi Cells,Urine Few per hpf (None-Few); Urobilinogen,Urine Normal (Normal); WBC,Urine 30-50 per hpf (0-3)
[2020-06-07] MEDS: Piperacillin/Tazobactam 3.375 GM in 0.9 % Sodium Chloride Mini Bag 100 ML IVPB SCH ×2 (15:35→23:41)
[2020-06-07] MEDS: Loratadine 10 MG TABLET PO SCH (20:12)
[2020-06-08] MEDS: Ipratropium 1 PUFF INHALER IH SCH ×7 (00:12→23:22)
[2020-06-08] MEDS ORDERED: 0.9 % Sodium Chloride 1,000 ML ONE (00:16)
[2020-06-08] MEDS: Insulin LISPRO 300 UNITS/3 ML VIAL SUBQ SCH ×7 (00:37→23:55)
[2020-06-08] MEDS: Dexmedetomidine HCl 400 MCG/100 ML MLS IVC SCH ×8 (01:32→21:39)
[2020-06-08] MEDS: Artificial Tears SOLN 15 ML BOTTLE BOTH EYES SCH ×6 (04:19→23:27)
[2020-06-08 04:24] LABS: ABG Base Excess 2 mEq/L (-2 to 3); ABG HCO3 31 mEq/L (21-27); ABG Oxygen Saturation 91 % (95-98); ABG PCO2 73 mmHg (35-45); ABG PH 7.24 pH Units (7.32-7.45); ABG PO2 73 mmHg (85-104); ABG TCO2 34 mEq/L (20-26); Blood Gas Modality ASSIST CONTROL; Blood Gas VT 380 cc
[2020-06-08 04:30] LABS: Basophils % 0.2 %; Eosinophils # 0.1 K/mcL (0.0-0.6); Eosinophils % 1.3 %; Hematocrit 33.6 % (35.3-44.9); Hemoglobin 10.2 g/dL (11.5-15.4); Immature Granulocytes % 1.7 % (0-4); Lymphocytes # 0.4 K/mcL (0.6-4.6); Lymphocytes % 4.3 %; Mean Corpuscular HGB Conc 30.4 g/dL (31.6-35.5); Mean Corpuscular Hemoglobin 29.2 pg (28.0-33.3); Mean Corpuscular Volume 96.3 fL (83.0-100.0); Mean Platelet Volume 10.1 fL (9.4-12.4); Monocytes # 0.3 K/mcL (0.0-1.3); Monocytes % 3.2 %; Neutrophils # 8.8 K/mcL (1.6-8.9); Platelet Count 253 K/mcL (140-400); Red Blood Count 3.49 M/mcL (3.82-4.97); Red Cell Distribution Width 15.8 % (11.5-14.5); Segmented Neutrophils % 89.3 %; White Blood Count 9.9 K/mcL (4.3-11.1)
[2020-06-08 04:47] LABS: BUN/Creatinine Ratio 65 (6-26); Blood Urea Nitrogen 68 mg/dL (6-20); Calcium 9.4 mg/dL (8.6-10.3); Carbon Dioxide 29 mEq/L (23-29); Chloride 106 mEq/L (98-107); Glucose 207 mg/dL (70-105); Magnesium 1.3 mg/dL (1.6-2.6); Osmolality,Calculated 324 (280-300); Phosphorous 4.6 mg/dL (2.7-4.5); Potassium 3.5 mEq/L (3.5-5.1); Sodium 144 mEq/L (136-145); eGFR For African Americans > 60 (> 60); eGFR For Non-African Americans 55 (> 60)
[2020-06-08] MEDS: *HR* Heparin 5,000 UNIT/ML VIAL SQ SCH ×3 (05:38→23:26)
[2020-06-08] MEDS: Docusate Oral Soln 100 MG/10 ML UDC GTUBE SCH ×2 (07:30→19:42)
[2020-06-08] MEDS: Piperacillin/Tazobactam 3.375 GM in 0.9 % Sodium Chloride Mini Bag 100 ML IVPB SCH ×3 (07:30→23:27)
[2020-06-08] MEDS: Chlorhexidine Rinse 15 ML MOUTHWASH MM SCH ×2 (07:30→19:42)
[2020-06-08] MEDS: Dexamethasone Sodium Phos/PF 10 MG/ML VIAL IVP SCH (07:31)
[2020-06-08] MEDS: Pantoprazole 40 MG VIAL IVP SCH (07:31)
[2020-06-08] MEDS: Cyanocobalamin (B-12) 1,000 MCG TABLET PO SCH (07:31)
[2020-06-08] MEDS: Cholecalciferol (D-3) 1,000 UNIT (25MCG) TABLET PO SCH (07:32)
[2020-06-08] MEDS: Furosemide 40 MG/4 ML VIAL IVP SCH ×2 (07:32→19:42)
[2020-06-08] MEDS: FentaNYL (PF) 2,500 MCG/50 ML IV.SOLN IVC SCH ×2 (07:32→20:56)
[2020-06-08] MEDS: Insulin DETEMIR 100 UNIT/ML X5UNITS SUBQ SCH ×2 (07:39→19:42)
[2020-06-08] MEDS: Budesonide/Formoterol 160/4.5 1 PUFF INH IH SCH ×2 (07:40→20:01)
[2020-06-08] MEDS: Cisatracurium 200 MG in 0.9 % Sodium Chloride 180 ML IVC SCH (10:24)
[2020-06-08 10:57] LABS: D-Dimer 1982 ng/mLFEU (0-500)
[2020-06-08 11:00] LABS: Fibrinogen > 1000 mg/dL (169-393)
[2020-06-08 11:04] LABS: C-Reactive Protein > 300 mg/L (Less than 10); Lactate Dehydrogenase 177 Units/L (140-271)
[2020-06-08] MEDS ORDERED: Furosemide 40 MG/4 ML VIAL IVP ONE (12:00)
[2020-06-08] MEDS: Norepinephrine 4 MG/254 ML IV.SOLN IVC SCH (12:06)
[2020-06-08] MEDS: Midazolam HCl 50 MG/100 ML IV.SOLN IVC SCH (18:19)
[2020-06-08] MEDS: Loratadine 10 MG TABLET PO SCH (19:42)
[2020-06-09] MEDS: Dexmedetomidine HCl 400 MCG/100 ML MLS IVC SCH ×8 (00:39→23:03)
[2020-06-09] MEDS: Cisatracurium 200 MG in 0.9 % Sodium Chloride 180 ML IVC SCH ×2 (01:04→17:35)
[2020-06-09] MEDS: Artificial Tears SOLN 15 ML BOTTLE BOTH EYES SCH ×5 (03:43→19:27)
[2020-06-09] MEDS: FentaNYL (PF) 2,500 MCG/50 ML IV.SOLN IVC SCH ×2 (04:10→16:04)
[2020-06-09 04:17] LABS: Basophils % 0.1 %; Hematocrit 32.8 % (35.3-44.9); Hemoglobin 10.1 g/dL (11.5-15.4); Immature Granulocytes % 1.8 % (0-4); Lymphocytes # 0.5 K/mcL (0.6-4.6); Lymphocytes % 4.9 %; Mean Corpuscular HGB Conc 30.8 g/dL (31.6-35.5); Mean Corpuscular Hemoglobin 29.1 pg (28.0-33.3); Mean Corpuscular Volume 94.5 fL (83.0-100.0); Mean Platelet Volume 10.4 fL (9.4-12.4); Monocytes # 0.7 K/mcL (0.0-1.3); Monocytes % 7.5 %; Neutrophils # 7.9 K/mcL (1.6-8.9); Nucleated Red Blood Cells 0.2 /100 WBC (0); Platelet Count 237 K/mcL (140-400); Red Blood Count 3.47 M/mcL (3.82-4.97); Red Cell Distribution Width 15.4 % (11.5-14.5); Segmented Neutrophils % 85.7 %; White Blood Count 9.2 K/mcL (4.3-11.1)
[2020-06-09] MEDS: Ipratropium 1 PUFF INHALER IH SCH ×6 (04:24→23:53)
[2020-06-09 04:36] LABS: Calcium 9.6 mg/dL (8.6-10.3); Magnesium 2.2 mg/dL (1.6-2.6); Phosphorous 3.4 mg/dL (2.7-4.5); Potassium 3.5 mEq/L (3.5-5.1)
[2020-06-09] MEDS: Insulin LISPRO 300 UNITS/3 ML VIAL SUBQ SCH ×5 (05:08→20:32)
[2020-06-09 05:20] LABS: ABG Base Excess 5 mEq/L (-2 to 3); ABG HCO3 33 mEq/L (21-27); ABG Oxygen Saturation 94 % (95-98); ABG PCO2 66 mmHg (35-45); ABG PH 7.31 pH Units (7.32-7.45); ABG PO2 79 mmHg (85-104); ABG TCO2 35 mEq/L (20-26); Blood Gas VT 380 cc
[2020-06-09] MEDS: Norepinephrine 4 MG/254 ML IV.SOLN IVC SCH (05:42)
[2020-06-09] MEDS: *HR* Heparin 5,000 UNIT/ML VIAL SQ SCH ×3 (05:45→20:47)
[2020-06-09] MEDS: Pantoprazole 40 MG VIAL IVP SCH (07:27)
[2020-06-09] MEDS: Furosemide 40 MG/4 ML VIAL IVP SCH ×2 (07:27→20:48)
[2020-06-09] MEDS: Piperacillin/Tazobactam 3.375 GM in 0.9 % Sodium Chloride Mini Bag 100 ML IVPB SCH ×2 (07:27→16:06)
[2020-06-09] MEDS: Dexamethasone Sodium Phos/PF 10 MG/ML VIAL IVP SCH (07:27)
[2020-06-09] MEDS: Docusate Oral Soln 100 MG/10 ML UDC GTUBE SCH ×2 (07:27→20:47)
[2020-06-09] MEDS: Cholecalciferol (D-3) 1,000 UNIT (25MCG) TABLET PO SCH (07:28)
[2020-06-09] MEDS: Chlorhexidine Rinse 15 ML MOUTHWASH MM SCH ×3 (07:28→20:47)
[2020-06-09] MEDS: Cyanocobalamin (B-12) 1,000 MCG TABLET PO SCH (07:28)
[2020-06-09] MEDS: Insulin DETEMIR 100 UNIT/ML X5UNITS SUBQ SCH ×2 (07:30→20:51)
[2020-06-09] MEDS: Budesonide/Formoterol 160/4.5 1 PUFF INH IH SCH ×2 (07:39→20:09)
[2020-06-09] MEDS ORDERED: Insulin DETEMIR 100 UNIT/ML X5UNITS SUBQ ONE (12:00)
[2020-06-09] MEDS ORDERED: 0.9 % Sodium Chloride 500 ML ONE (13:38)
[2020-06-09] MEDS ORDERED: *HR* Heparin 5,000 UNIT/ML VIAL ONE (14:10)
[2020-06-09] MEDS ORDERED: *HR* Heparin 5,000 UNIT/ML VIAL CRRT PRN (15:28)
[2020-06-09] MEDS ORDERED: Calcium Gluconate 1gm/50mL 1 GM/50 ML BAG IVPB PRN (15:28)
[2020-06-09 17:31] LABS: VBG Ionized Calcium 1.23 mmol/L (1.15-1.35)
[2020-06-09 17:36] LABS: INR 1.3; Prothrombin Time 14.9 Seconds (9.4-12.1)
[2020-06-09] MEDS: Midazolam HCl 50 MG/100 ML IV.SOLN IVC SCH (18:09)
[2020-06-09] MEDS: 0.9 % Sodium Chloride 1,000 ML PRIME SCH ×7 (19:25→23:06)
[2020-06-09] MEDS: PrismaSATE BGK 4/2.5 5,000 ML CRRT SCH ×2 (19:26)
[2020-06-09] MEDS: Calcium Chloride 4,000 MG in 0.9 % Sodium Chloride 1,000 ML CRRT SCH (19:27)
[2020-06-09] MEDS: Loratadine 10 MG TABLET PO SCH (20:47)
[2020-06-09 22:21] LABS: VBG Ionized Calcium 1.24 mmol/L (1.15-1.35)
[2020-06-10] MEDS: Artificial Tears SOLN 15 ML BOTTLE BOTH EYES SCH ×7 (00:14→23:55)
[2020-06-10] MEDS: Insulin LISPRO 300 UNITS/3 ML VIAL SUBQ SCH ×7 (00:15→23:54)
[2020-06-10] MEDS: 0.9 % Sodium Chloride 1,000 ML PRIME SCH ×25 (00:15→23:56)
[2020-06-10] MEDS: Piperacillin/Tazobactam 3.375 GM in 0.9 % Sodium Chloride Mini Bag 100 ML IVPB SCH ×4 (00:20→23:13)
[2020-06-10] MEDS: Dexmedetomidine HCl 400 MCG/100 ML MLS IVC SCH ×8 (01:53→23:34)
[2020-06-10] MEDS: PrismaSATE BGK 4/2.5 5,000 ML CRRT SCH ×4 (03:04→16:17)
[2020-06-10] MEDS: FentaNYL (PF) 2,500 MCG/50 ML IV.SOLN IVC SCH ×2 (04:05→16:16)
[2020-06-10 04:15] LABS: Basophils % 0.2 %; Eosinophils % 0.3 %; Hematocrit 31.6 % (35.3-44.9); Hemoglobin 9.6 g/dL (11.5-15.4); Immature Granulocytes % 1.5 % (0-4); Lymphocytes # 0.8 K/mcL (0.6-4.6); Lymphocytes % 8.9 %; Mean Corpuscular HGB Conc 30.4 g/dL (31.6-35.5); Mean Corpuscular Hemoglobin 28.9 pg (28.0-33.3); Mean Corpuscular Volume 95.2 fL (83.0-100.0); Mean Platelet Volume 10.7 fL (9.4-12.4); Monocytes # 0.9 K/mcL (0.0-1.3); Monocytes % 9.4 %; Neutrophils # 7.6 K/mcL (1.6-8.9); Platelet Count 220 K/mcL (140-400); Red Blood Count 3.32 M/mcL (3.82-4.97); Red Cell Distribution Width 15.6 % (11.5-14.5); Segmented Neutrophils % 79.7 %; White Blood Count 9.5 K/mcL (4.3-11.1)
[2020-06-10 04:19] LABS: VBG Ionized Calcium 1.23 mmol/L (1.15-1.35)
[2020-06-10 04:32] LABS: Calcium 10.1 mg/dL (8.6-10.3); Potassium 3.5 mEq/L (3.5-5.1)
[2020-06-10 04:33] LABS: Phosphorous 4.1 mg/dL (2.7-4.5)
[2020-06-10] MEDS: Ipratropium 1 PUFF INHALER IH SCH ×6 (04:44→23:38)
[2020-06-10] MEDS: *HR* Heparin 5,000 UNIT/ML VIAL SQ SCH ×3 (05:08→20:14)
[2020-06-10 05:19] LABS: ABG Base Excess 5 mEq/L (-2 to 3); ABG HCO3 33 mEq/L (21-27); ABG Oxygen Saturation 96 % (95-98); ABG PCO2 65 mmHg (35-45); ABG PH 7.31 pH Units (7.32-7.45); ABG PO2 96 mmHg (85-104); ABG TCO2 35 mEq/L (20-26); Blood Gas Modality VC; Blood Gas VT 380 cc
[2020-06-10] MEDS: Cisatracurium 200 MG in 0.9 % Sodium Chloride 180 ML IVC SCH (06:59)
[2020-06-10] MEDS: Budesonide/Formoterol 160/4.5 1 PUFF INH IH SCH ×2 (07:46→20:05)
[2020-06-10] MEDS: Docusate Oral Soln 100 MG/10 ML UDC GTUBE SCH ×2 (07:48→20:13)
[2020-06-10] MEDS: Furosemide 40 MG/4 ML VIAL IVP SCH (07:49)
[2020-06-10] MEDS: Pantoprazole 40 MG VIAL IVP SCH (07:49)
[2020-06-10] MEDS: Insulin DETEMIR 100 UNIT/ML X5UNITS SUBQ SCH ×2 (07:50→20:12)
[2020-06-10] MEDS: Cholecalciferol (D-3) 1,000 UNIT (25MCG) TABLET PO SCH (07:50)
[2020-06-10] MEDS: Cyanocobalamin (B-12) 1,000 MCG TABLET PO SCH (07:50)
[2020-06-10 10:21] LABS: VBG Ionized Calcium 1.24 mmol/L (1.15-1.35)
[2020-06-10] MEDS: Norepinephrine 4 MG/254 ML IV.SOLN IVC SCH (14:16)
[2020-06-10 16:25] LABS: VBG Ionized Calcium 1.12 mmol/L (1.15-1.35)
[2020-06-10] MEDS: Calcium Chloride 4,000 MG in 0.9 % Sodium Chloride 1,000 ML CRRT SCH ×2 (19:14→21:00)
[2020-06-10] MEDS: Midazolam HCl 50 MG/100 ML IV.SOLN IVC SCH ×2 (19:14→21:00)
[2020-06-10] MEDS: Chlorhexidine Rinse 15 ML MOUTHWASH MM SCH (20:13)
[2020-06-10] MEDS: Loratadine 10 MG TABLET PO SCH (20:13)
[2020-06-10 22:28] LABS: VBG Ionized Calcium 1.07 mmol/L (1.15-1.35)
[2020-06-11] MEDS: PrismaSATE BGK 4/2.5 5,000 ML CRRT SCH ×3 (00:56→07:30)
[2020-06-11] MEDS ORDERED: Albumin 25% 12.5gm/50mL 12.5 GM/50 ML IV.SOLN IVPB ONE (01:06)
[2020-06-11 01:13] LABS: VBG Ionized Calcium 1.05 mmol/L (1.15-1.35)
[2020-06-11] MEDS: 0.9 % Sodium Chloride 1,000 ML PRIME SCH ×16 (01:30→23:21)
[2020-06-11] MEDS: Dexmedetomidine HCl 400 MCG/100 ML MLS IVC SCH ×8 (02:10→23:07)
[2020-06-11] MEDS: Norepinephrine 4 MG/254 ML IV.SOLN IVC SCH ×6 (02:20→21:37)
[2020-06-11] MEDS: Artificial Tears SOLN 15 ML BOTTLE BOTH EYES SCH ×5 (03:00→19:43)
[2020-06-11 03:26] LABS: Basophils # 0.1 K/mcL (0.0-0.2); Basophils % 0.4 %; Eosinophils # 0.1 K/mcL (0.0-0.6); Eosinophils % 0.8 %; Hematocrit 34.5 % (35.3-44.9); Hemoglobin 10.7 g/dL (11.5-15.4); Immature Granulocytes % 1.8 % (0-4); Lymphocytes # 1.2 K/mcL (0.6-4.6); Mean Corpuscular Hemoglobin 29.2 pg (28.0-33.3); Mean Corpuscular Volume 94.3 fL (83.0-100.0); Mean Platelet Volume 10.7 fL (9.4-12.4); Monocytes # 1.7 K/mcL (0.0-1.3); Monocytes % 10.5 %; Neutrophils # 13.1 K/mcL (1.6-8.9); Nucleated Red Blood Cells 0.2 /100 WBC (0); Platelet Count 278 K/mcL (140-400); Red Blood Count 3.66 M/mcL (3.82-4.97); Red Cell Distribution Width 15.2 % (11.5-14.5); Segmented Neutrophils % 79.5 %; White Blood Count 16.5 K/mcL (4.3-11.1)
[2020-06-11 03:32] LABS: INR 1.2; Prothrombin Time 13.4 Seconds (9.4-12.1)
[2020-06-11 03:34] LABS: Activated Partial Thrombo Time 48.8 Seconds (26.0-36.0)
[2020-06-11 03:40] LABS: VBG Ionized Calcium 1.02 mmol/L (1.15-1.35)
[2020-06-11] MEDS: Ipratropium 1 PUFF INHALER IH SCH ×6 (03:41→22:59)
[2020-06-11 03:53] LABS: Albumin 3.1 g/dL (3.5-5.7); Albumin/Globulin Ratio 0.8 (1.1-2.2); Bilirubin,Direct 0.3 mg/dL (0.0-0.2); Bilirubin,Indirect 0.3 mg/dL (0.0-1.0); Bilirubin,Total 0.6 mg/dL (0.3-1.0); Calcium 9.1 mg/dL (8.6-10.3); Globulin 4.1 g/dL (2.4-3.5); Magnesium 1.7 mg/dL (1.6-2.6); Potassium 3.5 mEq/L (3.5-5.1); Total Protein 7.2 g/dL (6.4-8.9)
[2020-06-11 03:54] LABS: D-Dimer 1521 ng/mLFEU (0-500)
[2020-06-11 03:57] LABS: Fibrinogen > 1000 mg/dL (169-393)
[2020-06-11 03:59] LABS: ABG Base Excess 5 mEq/L (-2 to 3); ABG HCO3 34 mEq/L (21-27); ABG Oxygen Saturation 96 % (95-98); ABG PCO2 75 mmHg (35-45); ABG PH 7.26 pH Units (7.32-7.45); ABG PO2 96 mmHg (85-104); ABG TCO2 36 mEq/L (20-26); Blood Gas Modality ASSIST CONTROL; Blood Gas VT 380 cc
[2020-06-11] MEDS: Insulin LISPRO 300 UNITS/3 ML VIAL SUBQ SCH ×5 (04:12→20:15)
[2020-06-11] MEDS: FentaNYL (PF) 2,500 MCG/50 ML IV.SOLN IVC SCH ×2 (04:15→16:29)
[2020-06-11] MEDS: *HR* Heparin 5,000 UNIT/ML VIAL SQ SCH ×3 (05:03→20:39)
[2020-06-11 06:22] LABS: VBG Ionized Calcium 0.99 mmol/L (1.15-1.35)
[2020-06-11] MEDS: Calcium Gluconate 1gm/50mL 1 GM/50 ML BAG IVPB PRN ×3 (06:49→11:46)
[2020-06-11] MEDS: Budesonide/Formoterol 160/4.5 1 PUFF INH IH SCH ×2 (07:43→20:09)
[2020-06-11] MEDS: Docusate Oral Soln 100 MG/10 ML UDC GTUBE SCH ×2 (08:14→19:42)
[2020-06-11] MEDS: Chlorhexidine Rinse 15 ML MOUTHWASH MM SCH ×2 (08:14→19:42)
[2020-06-11] MEDS: Pantoprazole 40 MG VIAL IVP SCH (08:14)
[2020-06-11] MEDS: Cyanocobalamin (B-12) 1,000 MCG TABLET PO SCH (08:15)
[2020-06-11] MEDS: Cholecalciferol (D-3) 1,000 UNIT (25MCG) TABLET PO SCH (08:15)
[2020-06-11] MEDS: Piperacillin/Tazobactam 3.375 GM in 0.9 % Sodium Chloride Mini Bag 100 ML IVPB SCH ×3 (08:15→23:06)
[2020-06-11] MEDS: Insulin DETEMIR 100 UNIT/ML X5UNITS SUBQ SCH ×2 (08:17→20:15)
[2020-06-11 10:01] LABS: VBG Ionized Calcium 0.95 mmol/L (1.15-1.35)
[2020-06-11] MEDS: Calcium Chloride 4,000 MG in 0.9 % Sodium Chloride 1,000 ML CRRT SCH (10:20)
[2020-06-11] MEDS ORDERED: Vancomycin 1,750 MG in 0.9 % Sodium Chloride 250 ML IVPB SCH (14:00)
[2020-06-11 14:03] LABS: VBG Ionized Calcium 1.17 mmol/L (1.15-1.35)
[2020-06-11] MEDS ORDERED: Vancomycin 2,000 MG/520 ML IV.SOLN IVPB ONE (14:11)
[2020-06-11] MEDS ORDERED: Norepinephrine 4 MG/254 ML IV.SOLN IVC SCH (21:15)
[2020-06-11] MEDS ORDERED: Norepinephrine 16 MG in 0.9 % Sodium Chloride 500 ML IVC SCH (21:30)
[2020-06-11] MEDS: Midazolam HCl 50 MG/100 ML IV.SOLN IVC SCH (23:07)
[2020-06-12] MEDS: Artificial Tears SOLN 15 ML BOTTLE BOTH EYES SCH ×3 (00:13→08:17)
[2020-06-12] MEDS: Insulin LISPRO 300 UNITS/3 ML VIAL SUBQ SCH ×3 (00:41→08:17)
[2020-06-12] MEDS: 0.9 % Sodium Chloride 1,000 ML PRIME SCH ×8 (00:43→07:23)
[2020-06-12] MEDS: Dexmedetomidine HCl 400 MCG/100 ML MLS IVC SCH ×2 (03:05→05:33)
[2020-06-12] MEDS: Ipratropium 1 PUFF INHALER IH SCH ×3 (03:53→10:13)
[2020-06-12] MEDS ORDERED: *HR* Metoprolol 5 MG/5 ML VIAL IVP ONE (04:04)
[2020-06-12 04:05] LABS: Basophils # 0.1 K/mcL (0.0-0.2); Basophils % 0.4 %; Eosinophils # 0.3 K/mcL (0.0-0.6); Eosinophils % 1.2 %; Hematocrit 31.2 % (35.3-44.9); Hemoglobin 9.4 g/dL (11.5-15.4); Immature Granulocytes % 2.5 % (0-4); Lymphocytes # 1.4 K/mcL (0.6-4.6); Lymphocytes % 6.8 %; Mean Corpuscular HGB Conc 30.1 g/dL (31.6-35.5); Mean Corpuscular Hemoglobin 28.8 pg (28.0-33.3); Mean Corpuscular Volume 95.7 fL (83.0-100.0); Mean Platelet Volume 11.1 fL (9.4-12.4); Monocytes # 0.8 K/mcL (0.0-1.3); Neutrophils # 17.7 K/mcL (1.6-8.9); Nucleated Red Blood Cells 0.3 /100 WBC (0); Platelet Count 244 K/mcL (140-400); Red Blood Count 3.26 M/mcL (3.82-4.97); Segmented Neutrophils % 85.1 %
[2020-06-12 04:06] LABS: White Blood Count 20.8 K/mcL (4.3-11.1)
[2020-06-12] MEDS: Vasopressin 40 UNIT in D5% in Water 100 ML IVC SCH ×2 (04:07→04:47)
[2020-06-12 04:26] LABS: Calcium 9.3 mg/dL (8.6-10.3); Magnesium 1.6 mg/dL (1.6-2.6); Potassium 3.3 mEq/L (3.5-5.1)
[2020-06-12] MEDS: *HR* Heparin 5,000 UNIT/ML VIAL SQ SCH (04:46)
[2020-06-12 05:12] LABS: ABG Base Excess 0 mEq/L (-2 to 3); ABG HCO3 29 mEq/L (21-27); ABG Oxygen Saturation 88 % (95-98); ABG PCO2 71 mmHg (35-45); ABG PH 7.22 pH Units (7.32-7.45); ABG PO2 67 mmHg (85-104); ABG TCO2 31 mEq/L (20-26); Blood Gas Modality ASSIST CONTROL; Blood Gas VT 380 cc
[2020-06-12 07:21] VITALS: BP 83/60
[2020-06-12] MEDS: FentaNYL (PF) 2,500 MCG/50 ML IV.SOLN IVC SCH (07:22)
[2020-06-12] MEDS: Piperacillin/Tazobactam 3.375 GM in 0.9 % Sodium Chloride Mini Bag 100 ML IVPB SCH (08:16)
[2020-06-12] MEDS: Docusate Oral Soln 100 MG/10 ML UDC GTUBE SCH (09:00)
[2020-06-12] MEDS: Insulin DETEMIR 100 UNIT/ML X5UNITS SUBQ SCH (09:00)
[2020-06-12] MEDS: Chlorhexidine Rinse 15 ML MOUTHWASH MM SCH (09:00)
[2020-06-12] MEDS: Budesonide/Formoterol 160/4.5 1 PUFF INH IH SCH (10:13)
== END 2020-06-12 10:45 | disposition expired | DRG 720 ==
LOC: 2NENU 18:22 → EMEROOARM 18:22 → SUATTDRO 21:44 → 2NENU 22:22 → SUATTDRO 05-30 13:16 → ICNU 06-01 09:06
PROVIDERS: ADMIT Student in an Organized Health Care Education/Training Program; ATTEND Internal Medicine
PROC: IRPERMA (2020-06-09 12:00)